=== PATIENT | female | born 1955 | race African-American/Black ===

== ENCOUNTER 2016-06-21 08:21 | Emergency (ER) | payer OTHER ==
[2016-06-21 08:30] VITALS: TEMP 98; BMI 33.7
[2016-06-21] MEDS ORDERED: KETOROLAC TROMETHAMINE 30 MG/1 ML VIAL IVPUSH ONE (09:52)
[2016-06-21] MEDS ORDERED: amLODIPine BESYLATE 5 MG TABLET (FP) PO ONE (09:56)
[2016-06-21] MEDS ORDERED: LISINOPRIL 5 MG TABLET (FP) PO ONE (09:56)
--- NOTE | 2016-06-21 09:56 | PDOC ---
History of Present Illness - General Chief Complaint: Blood Pressure Problem Stated Complaint: DIZZINESS, HIGH BP, BACK PAIN Time Seen by Provider: 06/21/16 09:24 History Source: Patient - History of Present Illness Timing/Duration: other Severity: moderate Associated Symptoms: denies: chest pain, diaphoresis, fever/chills, headaches, malaise, nausea/vomiting, shortness of breath, syncope, weakness Past History - Past Medical History Allergies/Adverse Reactions: Allergies Allergy/AdvReac Type Severity Reaction Status Date / Time No Known Allergies Allergy Verified 06/21/16 08:27 Home Medications: Ambulatory Orders Amlodipine Besylate 5 mg PO 06/21/16 Lisinopril 5 mg PO 06/21/16 Oxycodone HCl/Acetaminophen [Percocet 5-325 mg Tablet] 1 - 2 tab PO Q4H Anemia: Yes Asthma: Yes GI Disorders: Yes (gerd) HTN: Yes Other medical history: arithritis - Immunization History Immunization Up to Date: No - Psycho/Social/Smoking Cessation Hx Anxiety: No Suicidal Ideation: No Smoking History: Current every day smoker Have you smoked in the past 12 months: Yes Number of Cigarettes Smoked Daily: 10 Information on smoking cessation initiated: Yes 'Breaking Loose' booklet given: 06/21/16 Hx Alcohol Use: No Drug/Substance Use Hx: No Substance Use Type: None Review of Systems - Review of Systems Constitutional: No: Chills, Fever Respiratory: No: Shortness of Breath Cardiac (ROS): No: Chest Pain ABD/GI: No: Nausea, Vomiting : No: Dysuria Neurological: No: Headache, Dizziness *Physical Exam - Vital Signs Last Vital Signs Temp Pulse Resp BP Pulse Ox 98.0 F 68 18 155/115 100 06/21/16 08:28 06/21/16 08:28 06/21/16 08:28 06/21/16 08:28 06/21/16 08:28 - Physical Exam General Appearance: Yes: Appropriately Dressed. No: Apparent Distress HEENT: positive: Normal Voice Neck: positive: Supple Respiratory/Chest: positive: Lungs Clear, Normal Breath Sounds. negative: Respiratory Distress Cardiovascular: positive: Regular Rate, S1, S2 Gastrointestinal/Abdominal: positive: Soft. negative: Tender Integumentary: positive: Dry, Warm Neurologic: positive: Fully Oriented, Alert, Normal Mood/Affect ED Treatment Course - LABORATORY CBC & Chemistry Diagram: 06/21/16 09:44 06/21/16 09:44 Medical Decision Making - Medical Decision Making 06/21/16 09:52 60-year-old female history of arthritis to lower back and legs as per patient currently follows up with pain management and on percocet, hypertension, polysubstance abuse including ETOH, crack/cocaine and marijuana, here complaining of her usual back and leg pain and requesting percocet as she ran out. Patient also requesting inpatient rehabilitation. Denies CP/SOB and no dizziness as recorded at triage See exam Arthritis -pain control Polysubstance abuse -req inpt rehab -labs including etoh lvl and drug screen pending -discuss w/ 2 [place] Elevated BP -will give home meds and reassess 06/21/16 09:56 06/21/16 09:57 06/21/16 11:[address] Tan who accepted pt to the rehab center at [facility]. ED nurse aware. BP improved w/ meds. Pt stable for transfer *DC/Admit/Observation/Transfer Diagnosis at time of Disposition: Polysubstance abuse, Arthritis - Discharge Dispostion Disposition: I.P. ALCOHOL/SUBS ABUSE REHAB Condition at time of disposition: Stable - Referrals Referrals: Sarath Carmona [Primary Care Provider] -
[2016-06-21] MEDS ORDERED: amLODIPine BESYLATE 5 MG TABLET (FP) ONE (10:08)
[2016-06-21] MEDS ORDERED: KETOROLAC TROMETHAMINE 60 MG/2 ML VIAL ONE (10:08)
[2016-06-21] MEDS ORDERED: LISINOPRIL 5 MG TABLET (FP) ONE (10:09)
[2016-06-21 10:12] LABS: EOSINOPHIL 3.1 % (0-4.5); MCH 29.6 pg (25.7-33.7); MCHC 32.7 g/dl (32.0-36.0); MEAN CELL VOLUME 90.4 fl (80-96); MEAN PLT VOLUME 8.8 fl (7.5-11.1); NEUTROPHILS 51.1 % (42.8-82.8); PLATELET COUNT 203 K/MM3 (134-434); RDW 14.4 % (11.6-15.6)
[2016-06-21 10:19] LABS: URINE APPEARANCE CLEAR; URINE BILIRUBIN NEGATIVE (NEGATIVE); URINE COLOR YELLOW; URINE GLUCOSE (UA) NEGATIVE (NEGATIVE); URINE KETONE NEGATIVE (NEGATIVE); URINE LEUK ESTERASE NEGATIVE (NEGATIVE); URINE NITRITE NEGATIVE (NEGATIVE); URINE PROTEIN NEGATIVE (NEGATIVE); URINE UROBILINOGEN NEGATIVE E.U./dl (0.2-1.0)
[2016-06-21 10:24] LABS: URINE BLOOD 1+ (NEGATIVE)
[2016-06-21 10:28] LABS: URINE MUCUS RARE; URINE RBC 1 /hpf (0-3); URINE WBC <1 /hpf (3-5)
[2016-06-21 10:32] LABS: ALBUMIN 3.6 g/dl (3.4-5.0); ANION GAP 3 (8-16); BILIRUBIN,TOTAL 0.8 mg/dL (0.2-1.0); CALCIUM 8.8 mg/dL (8.5-10.1); CO2 31 mmol/L (21-32); CREATININE 1.1 mg/dL (0.55-1.02); GLUCOSE,RANDOM 84 mg/dL (74-106); SGPT/ALT 16 U/L (12-78); TOT PROT 7.2 g/dl (6.4-8.2)
[2016-06-21 10:35] LABS: URINE MARIJUANA THC POSITIVE ng/ml (CUTOFF=50)
[2016-06-21 10:38] LABS: ALK PHOS 69 U/L (45-117); SGOT/AST 8 U/L (15-37); TROPONIN I < 0.02 ng/ml (0.00-0.05)
[2016-06-21 12:28] VITALS: BP 149/77; PULSE 64
== END 2016-06-21 12:33 | disposition home or self-care (01) ==
LOC: JER 08:21
PROC: 3E0333Z Introduction of Anti-inflammatory into Peripheral Vein, Percutaneous Approach (ICD-10-PCS; principal; 2016-06-21)
DX: F19.90 Other psychoactive substance use, unspecified, uncomplicated (principal); F10.10 Alcohol abuse, uncomplicated; M19.90 Unspecified osteoarthritis, unspecified site; I10 Essential (primary) hypertension; K21.9 Gastro-esophageal reflux disease without esophagitis; J45.909 Unspecified asthma, uncomplicated; D64.9 Anemia, unspecified; F17.210 Nicotine dependence, cigarettes, uncomplicated
CPT/HCPCS: 36415; 80053; 80307; 81003; 81015; 82550; 84484; 85025; 96374; 99283-25

== ENCOUNTER 2016-06-21 13:33 | Inpatient (IN) | payer OTHER ==
[2016-06-21 15:09] VITALS: BMI 33.7
--- NOTE | 2016-06-21 15:32 | HP ---
Admission ROS S - HPI Chief Complaint: i need help to stay clean from alcohol,cocaine and marijuana,sen in er at [facility] clear to come for rehab Allergies/Adverse Reactions: Allergies Allergy/AdvReac Type Severity Reaction Status Date / Time tomato Allergy Severe Hives Verified 06/21/16 15:17 No Known Drug Allergies Allergy Verified 06/21/16 15:17 History of Present Illness: this 60 years old female for rehab from alcohol,cocaine and marijuana gerrd htn gerd arthritis schizophrenia asthma last treatment 2007 Exam Limitations: No Limitations - Ebola screening Have you traveled outside of the country in the last 21 days: No Have you had contact with anyone from an Ebola affected area: No Have you been sick,other than usual withdrawal symptoms: No Do you have a fever: No - Review of Systems Constitutional: No Symptoms Reported EENT: reports: No Symptoms Reported Respiratory: reports: Wheezing, Other (asthma) Cardiac: reports: No Symptoms Reported GI: reports: No Symptoms Reported : reports: No Symptoms Reported Musculoskeletal: reports: No Symptoms Reported, Joint Pain, Muscle Pain Integumentary: reports: No Symptoms Reported Neuro: reports: No Symptoms reported Endocrine: reports: No Symptoms Reported Hematology: reports: No Symptoms Reported Psychiatric: reports: other (schizophrenia) Patient History - Patient Medical History Hx Anemia: Yes Hx Asthma: Yes (on albuterol inhaler) Hx Chronic Obstructive Pulmonary Disease (COPD): No Hx Cancer: No Hx Cardiac Disorders: No Hx Congestive Heart Failure: No Hx Hypertension: Yes (med) Hx Hypercholesterolemia: No Hx Pacemaker: No HX Cerebrovascular Accident: No Hx Seizures: No Hx Dementia: No Hx Diabetes: No Hx Gastrointestinal Disorders: Yes (gerd) Hx Liver Disease: No Hx Genitourinary Disorders: No Hx Sexually Transmitted Disorders: No Hx Renal Disease (ESRD): No Hx Thyroid Disease: No Hx Human Immunodeficiency Virus (HIV): No (last 2009 negative) Hx Hepatitis C: No Hx Depression: No Hx Suicide Attempt: No Hx Bipolar Disorder: No Hx Schizophrenia: Yes (had haldol 100 mgs im q 3 weeks last 06/20/16) - Patient Surgical History Past Surgical History: No - PPD History Previous Implant?: Yes Documented Results: Negative w/o proof Implanted On Prior [facility] Admission?: Yes PPD to be Administered?: Yes - Reproductive History Patient is a Female of Child Bearing Age (11 -55 yrs old): No - Smoking Cessation Smoking history: Current every day smoker Have you smoked in the past 12 months: Yes Aproximately how many cigarettes per day: 10 Cigars Per Day: 0 Hx Chewing Tobacco Use: No Initiated information on smoking cessation: Yes 'Breaking Loose' booklet given: 06/21/16 - Substance & Tx. History Hx Alcohol Use: Yes Hx Substance Use: Yes Substance Use Type: Alcohol, Cocaine, Marijuana Hx Substance Use Treatment: Yes (last 2007 [facility] rehab) - Substances Abused Alcohol Route: Oral Frequency: Daily Amount used: 2 BEERS Age of first use: 18 Date of Last Use: 06/21/16 Crack Route: Smoking Frequency: Daily Amount used: $100 Age of first use: 29 Date of Last Use: 06/21/16 Marijuana/Hashish Route: Smoking Frequency: Daily Amount used: 1 BLUNT Age of first use: 18 Date of Last Use: 06/21/16 Family Disease History - Family Disease History Family History: Denies Admission Physical Exam [facility] - Vital Signs Vital Signs: Vital Signs - 24 hr 06/21/16 15:05 Temperature 98 F Pulse Rate 73 Respiratory 20 Rate Blood Pressure 148/92 - Physical General Appearance: Yes: Within Normal Limits HEENTM: Yes: Within Normal Limits Respiratory: Yes: Lungs Clear Neck: Yes: Within Normal Limits Breast: Yes: Breast Exam Deferred Cardiology: Yes: Within Normal Limits, Regular Rhythm, Regular Rate, S1, S2 Abdominal: Yes: Normal Bowel Sounds, Non Tender, Flat, Soft Genitourinary: Yes: Within Normal Limits Back: Yes: Within Normal Limits Musculoskeletal: Yes: Within Normal Limits Extremities: Yes: Within Normal Limits 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 NML intact, Fully Oriented, Alert, Motor Strength 5/5 Integumentary: Yes: Within Normal Limits Lymphatic: Yes: Within Normal Limits - Diagnostic (1) Alcohol dependence Current Visit: Yes Status: Acute (2) Cocaine dependence Current Visit: Yes Status: Acute (3) Cannabis dependence Current Visit: Yes Status: Acute (4) Schizophrenia Current Visit: Yes Status: Acute (5) GERD (gastroesophageal reflux disease) Current Visit: Yes Status: Acute (6) Essential hypertension Current Visit: Yes Status: Acute (7) Asthma Current Visit: Yes Status: Acute (8) Anemia Current Visit: Yes Status: Acute Cleared for Admission S - Detox or Rehab Claeared for Rehab Admission: Yes [facility] Breath Alcohol Content Breath Alcohol Content: 0 Urine Pregancy Test - Result Urine Test Results: Negative- NO Line Present Urine Drug Screen - Results Drug Screen Negative: No Urine Drug Screen Results: KEKE-Cocaine, TCA-Tricyclic Antidepress
[2016-06-21] MEDS ORDERED: MENTHOL/PHENOL 1 EACH UD MM PRN (15:41)
[2016-06-21] MEDS ORDERED: MAGNESIUM CITRATE 300 ML BOTTLE PO PRN (15:41)
[2016-06-21] MEDS ORDERED: P-EPHED 60MG/TRIPROLIDI 2.5MG TABLET PO PRN (15:41)
[2016-06-21] MEDS ORDERED: guaiFENesin/D-METHORPHAN HB 10 ML UNIT-DOSE CUPS PO PRN (15:41)
[2016-06-21] MEDS ORDERED: hydrOXYzine PAMOATE 50 MG CAPSULE (FP) PO PRN (15:41)
[2016-06-21] MEDS ORDERED: MAG HYDROX/AL HYDROX/SIMETH 30 ML UNIT-DOSE CUP PO PRN (15:41)
[2016-06-21] MEDS ORDERED: LOPERAMIDE HCL 2 MG CAPSULE PO PRN (15:41)
[2016-06-21] MEDS ORDERED: MAGNESIUM HYDROX 2400MG/30ML ORAL SUSPENSION 30 ML CUP PO PRN (15:41)
[2016-06-21] MEDS ORDERED: diphenhydrAMINE HCL 50 MG CAPSULE PO PRN (15:41)
[2016-06-21] MEDS ORDERED: ALBUTEROL SO4 6.7 GM HFA INHALER IH PRN (15:45)
[2016-06-21] MEDS ORDERED: ALBUTEROL SO4 2.5/IPRATROPIUM 0.5 INH SOL 3 ML VIAL.NEB. NEB PRN (15:46)
[2016-06-21] MEDS ORDERED: TUBERCULIN PPD 5 TU/0.1ML VIAL ID ONE (18:01)
[2016-06-21] MEDS: THIAMINE HCL 100 MG TABLET (FP) PO SCH (22:01)
[2016-06-21] MEDS: RANITIDINE HCL 150 MG TABLET (FP) PO SCH (22:01)
[2016-06-21] MEDS: BUDESONIDE/FORMETEROL FUMARATE 160/4.5 mcg INHALER IH SCH (22:02)
[2016-06-21] MEDS: FERROUS SO4 325 MG TABLET (FP) PO SCH (22:02)
[2016-06-21] MEDS: DOCUSATE SODIUM 100 MG CAPSULE (FP) PO SCH (22:03)
[2016-06-22 05:31] LABS: URINE APPEARANCE CLEAR; URINE BILIRUBIN NEGATIVE (NEGATIVE); URINE BLOOD NEGATIVE (NEGATIVE); URINE COLOR YELLOW; URINE GLUCOSE (UA) NEGATIVE (NEGATIVE); URINE KETONE NEGATIVE (NEGATIVE); URINE LEUK ESTERASE NEGATIVE (NEGATIVE); URINE NITRITE NEGATIVE (NEGATIVE); URINE PROTEIN NEGATIVE (NEGATIVE); URINE UROBILINOGEN NEGATIVE E.U./dl (0.2-1.0)
[2016-06-22] MEDS: FERROUS SO4 325 MG TABLET (FP) PO SCH ×2 (07:32→17:45)
[2016-06-22] MEDS: DOCUSATE SODIUM 100 MG CAPSULE (FP) PO SCH ×3 (07:33→22:21)
[2016-06-22] MEDS ORDERED: PT OWN MED DRAWER 7, Y5N ONE ×2 (08:20→20:30)
[2016-06-22] MEDS: BUDESONIDE/FORMETEROL FUMARATE 160/4.5 mcg INHALER IH SCH ×2 (09:44→22:21)
[2016-06-22] MEDS: RANITIDINE HCL 150 MG TABLET (FP) PO SCH ×2 (09:45→22:21)
[2016-06-22] MEDS: PRENATAL VITAMINS W/ FOLIC ACID TABLET (FP) PO SCH (09:45)
[2016-06-22] MEDS: LISINOPRIL 5 MG TABLET (FP) PO SCH (09:45)
[2016-06-22] MEDS: amLODIPine BESYLATE 5 MG TABLET (FP) PO SCH (09:45)
--- NOTE | 2016-06-22 16:19 | EKG ---
Test Reason : Blood Pressure : / mmHG Vent. Rate : 076 BPM Atrial Rate : 076 BPM P-R Int : 144 ms QRS Dur : 082 ms QT Int : 402 ms P-R-T Axes : 067 -15 022 degrees QTc Int : 452 ms NORMAL SINUS RHYTHM NORMAL ECG WHEN COMPARED WITH ECG OF 05-JAN-2014 04:55, NO SIGNIFICANT CHANGE WAS FOUND Confirmed by JOCY ARREOLA MD ([id number]) on 06/22/2016 4:19:26 PM Referred By: Confirmed By:JOCY ARREOLA MD
[2016-06-22] MEDS: THIAMINE HCL 100 MG TABLET (FP) PO SCH (22:21)
[2016-06-23] MEDS: DOCUSATE SODIUM 100 MG CAPSULE (FP) PO SCH ×3 (06:42→21:24)
[2016-06-23] MEDS: FERROUS SO4 325 MG TABLET (FP) PO SCH ×2 (07:15→17:44)
[2016-06-23] MEDS: RANITIDINE HCL 150 MG TABLET (FP) PO SCH ×2 (09:12→21:24)
[2016-06-23] MEDS: amLODIPine BESYLATE 5 MG TABLET (FP) PO SCH (09:12)
[2016-06-23] MEDS: PRENATAL VITAMINS W/ FOLIC ACID TABLET (FP) PO SCH (09:12)
[2016-06-23] MEDS: LISINOPRIL 5 MG TABLET (FP) PO SCH (09:12)
[2016-06-23] MEDS: BUDESONIDE/FORMETEROL FUMARATE 160/4.5 mcg INHALER IH SCH ×2 (09:12→21:25)
[2016-06-23] MEDS ORDERED: PT OWN MED DRAWER 7, Y5N ONE (20:15)
[2016-06-23] MEDS: THIAMINE HCL 100 MG TABLET (FP) PO SCH (21:24)
[2016-06-24] MEDS: FERROUS SO4 325 MG TABLET (FP) PO SCH ×2 (07:18→17:20)
[2016-06-24] MEDS: DOCUSATE SODIUM 100 MG CAPSULE (FP) PO SCH ×3 (07:18→21:39)
[2016-06-24] MEDS: amLODIPine BESYLATE 5 MG TABLET (FP) PO SCH ×2 (07:25→10:11)
[2016-06-24] MEDS: LISINOPRIL 5 MG TABLET (FP) PO SCH ×2 (07:25→10:11)
[2016-06-24] MEDS: PRENATAL VITAMINS W/ FOLIC ACID TABLET (FP) PO SCH (10:10)
[2016-06-24] MEDS: RANITIDINE HCL 150 MG TABLET (FP) PO SCH ×2 (10:10→21:39)
[2016-06-24] MEDS: BUDESONIDE/FORMETEROL FUMARATE 160/4.5 mcg INHALER IH SCH ×2 (10:11→21:39)
--- NOTE | 2016-06-24 14:45 | HP ---
Psychiatrist Admission - Data Date of interview: 06/24/16 Admission source: [facility] Identifying data: This is the first admission to [address] [place] [address] for this 60 years old AA female,single,childless,undomiciled, supported by [facility]. Medical History: Obesity,HTN,GERD,BA. Psychiatric History: Patient is poor historian due to her cognitive deficit, somewhat relauctant behavior.According to the patient and medical record she started to see a psychiatrist since 14 years ld after her first psychotic breakdown.patient was admissted to [facility] for 6 months.She was dx with Schizophrenai,placed on Haldol with good response.Patient reports 4-5 more psychiatric hispitaliations.[facility]Patient is on Haldol Decanoate 100 mg IM every 4 weeks.Most recent injection was 1 week ago. Physical/Sexual Abuse/Trauma History: denies Vital Signs: Vital Signs - 24 hr 06/24/16 06/24/16 06/24/16 00:30 03:30 07:24 Temperature 97.9 F Pulse Rate 86 Respiratory 18 18 20 Rate Blood Pressure 174/112 06/24/16 11:05 Temperature Pulse Rate 69 Respiratory Rate Blood Pressure 138/80 Allergies/Adverse Reactions: Allergies Allergy/AdvReac Type Severity Reaction Status Date / Time tomato Allergy Severe Hives Verified 06/21/16 15:17 No Known Drug Allergies Allergy Verified 06/21/16 15:17 Date of last physical exam: 06/21/16 Concur with the findings of this exam: Yes - Substance Abuse/Tx History Hx Alcohol Use: Yes (reports drinking since 18 yo,2 beers daily at least) Hx Substance Use: Yes (cocaine/crack since 29 yo,$100 daily,Marijuana since 18 yo ,1 blunt daily) Substance Use Type: Alcohol, Cocaine, Marijuana Hx Substance Use Treatment: Yes (multiple rehabs,detox treatments in the past) - Admission Criteria Previous failed treatment: Yes Poor recovery environment: Yes Comorbidities: Yes Lacks judgement: Yes Mental Status Exam - Mental Status Exam Alert and Oriented to: Time, Place, Person Cognitive Function: Grossly Intact Patient Appearance: Unkempt Mood: Withdrawn Affect: Mood Congruent Patient Behavior: Guarded, Suspicious Speech Pattern: Clear Voice Loudness: Normal Thought Process: Goal Oriented Thought Disorder: Present Hallucinations: Denies Suicidal Ideation: Denies Homicidal Ideation: Denies Insight/Judgement: Impaired Sleep: Fair Appetite: Good, Weight gain Muscle strength/Tone: Normal Gait/Station: Normal Psychiatric Findings - Problem List (Barker 1, 2,3) (1) Alcohol dependence Current Visit: Yes Status: Chronic (2) Anemia Current Visit: Yes Status: Chronic (3) Asthma Current Visit: Yes Status: Chronic (4) Cannabis dependence Current Visit: Yes Status: Chronic (5) Cocaine dependence Current Visit: Yes Status: Chronic (6) Essential hypertension Current Visit: Yes Status: Chronic (7) GERD (gastroesophageal reflux disease) Current Visit: Yes Status: Chronic (8) Schizophrenia Current Visit: Yes Status: Chronic - Initial Treatment Plan Initial Treatment Plan: Continue current medications as per plan.Nexr Haldol Decanoate 100 mg IM in 3 weeks. Will monitor progress.
[2016-06-24] MEDS: THIAMINE HCL 100 MG TABLET (FP) PO SCH (21:39)
[2016-06-25] MEDS: DOCUSATE SODIUM 100 MG CAPSULE (FP) PO SCH ×3 (06:41→22:54)
[2016-06-25] MEDS: FERROUS SO4 325 MG TABLET (FP) PO SCH ×2 (07:43→18:31)
[2016-06-25] MEDS: PRENATAL VITAMINS W/ FOLIC ACID TABLET (FP) PO SCH (09:12)
[2016-06-25] MEDS: LISINOPRIL 5 MG TABLET (FP) PO SCH (09:13)
[2016-06-25] MEDS: RANITIDINE HCL 150 MG TABLET (FP) PO SCH ×2 (09:13→22:54)
[2016-06-25] MEDS: BUDESONIDE/FORMETEROL FUMARATE 160/4.5 mcg INHALER IH SCH ×2 (09:13→22:54)
[2016-06-25] MEDS: amLODIPine BESYLATE 5 MG TABLET (FP) PO SCH (09:13)
[2016-06-25] MEDS: THIAMINE HCL 100 MG TABLET (FP) PO SCH (22:54)
[2016-06-26] MEDS: DOCUSATE SODIUM 100 MG CAPSULE (FP) PO SCH ×3 (06:40→21:24)
[2016-06-26] MEDS: FERROUS SO4 325 MG TABLET (FP) PO SCH ×2 (07:27→18:03)
[2016-06-26] MEDS ORDERED: PT OWN MED DRAWER 7, Y5N ONE (08:50)
[2016-06-26] MEDS: amLODIPine BESYLATE 5 MG TABLET (FP) PO SCH (10:10)
[2016-06-26] MEDS: BUDESONIDE/FORMETEROL FUMARATE 160/4.5 mcg INHALER IH SCH ×2 (10:10→21:24)
[2016-06-26] MEDS: LISINOPRIL 5 MG TABLET (FP) PO SCH (10:10)
[2016-06-26] MEDS: RANITIDINE HCL 150 MG TABLET (FP) PO SCH ×2 (10:10→21:24)
[2016-06-26] MEDS: PRENATAL VITAMINS W/ FOLIC ACID TABLET (FP) PO SCH (10:10)
[2016-06-26] MEDS: THIAMINE HCL 100 MG TABLET (FP) PO SCH (21:23)
[2016-06-27] MEDS: DOCUSATE SODIUM 100 MG CAPSULE (FP) PO SCH ×3 (06:26→21:17)
[2016-06-27] MEDS: FERROUS SO4 325 MG TABLET (FP) PO SCH ×2 (07:13→17:25)
[2016-06-27] MEDS: LISINOPRIL 5 MG TABLET (FP) PO SCH (10:11)
[2016-06-27] MEDS: PRENATAL VITAMINS W/ FOLIC ACID TABLET (FP) PO SCH (10:11)
[2016-06-27] MEDS: RANITIDINE HCL 150 MG TABLET (FP) PO SCH ×2 (10:11→23:20)
[2016-06-27] MEDS: amLODIPine BESYLATE 5 MG TABLET (FP) PO SCH (10:11)
[2016-06-27] MEDS: BUDESONIDE/FORMETEROL FUMARATE 160/4.5 mcg INHALER IH SCH ×2 (10:12→21:18)
[2016-06-27] MEDS: THIAMINE HCL 100 MG TABLET (FP) PO SCH (21:18)
[2016-06-28] MEDS: DOCUSATE SODIUM 100 MG CAPSULE (FP) PO SCH ×3 (06:36→22:06)
[2016-06-28] MEDS: FERROUS SO4 325 MG TABLET (FP) PO SCH ×2 (07:34→17:10)
[2016-06-28] MEDS ORDERED: PT OWN MED DRAWER 7, Y5N ONE ×2 (08:48→20:05)
[2016-06-28] MEDS: BUDESONIDE/FORMETEROL FUMARATE 160/4.5 mcg INHALER IH SCH ×2 (09:54→22:06)
[2016-06-28] MEDS: RANITIDINE HCL 150 MG TABLET (FP) PO SCH ×2 (09:54→22:06)
[2016-06-28] MEDS: PRENATAL VITAMINS W/ FOLIC ACID TABLET (FP) PO SCH (09:54)
[2016-06-28] MEDS: LISINOPRIL 5 MG TABLET (FP) PO SCH (09:54)
[2016-06-28] MEDS: amLODIPine BESYLATE 5 MG TABLET (FP) PO SCH (09:54)
[2016-06-28] MEDS: IBUPROFEN 400 MG TABLET (FP) PO PRN ×2 (16:37→22:37)
[2016-06-28] MEDS: ACETAMINOPHEN 325 MG TABLET (FP) PO PRN (19:12)
[2016-06-28] MEDS: THIAMINE HCL 100 MG TABLET (FP) PO SCH (22:06)
[2016-06-29] MEDS: DOCUSATE SODIUM 100 MG CAPSULE (FP) PO SCH ×3 (06:43→21:21)
[2016-06-29] MEDS: FERROUS SO4 325 MG TABLET (FP) PO SCH ×2 (07:02→17:22)
[2016-06-29] MEDS: PRENATAL VITAMINS W/ FOLIC ACID TABLET (FP) PO SCH (09:51)
[2016-06-29] MEDS: LISINOPRIL 5 MG TABLET (FP) PO SCH (09:52)
[2016-06-29] MEDS: BUDESONIDE/FORMETEROL FUMARATE 160/4.5 mcg INHALER IH SCH ×2 (09:52→21:21)
[2016-06-29] MEDS: RANITIDINE HCL 150 MG TABLET (FP) PO SCH ×2 (09:52→23:20)
[2016-06-29] MEDS: amLODIPine BESYLATE 5 MG TABLET (FP) PO SCH (09:52)
[2016-06-29] MEDS: IBUPROFEN 400 MG TABLET (FP) PO PRN (09:56)
[2016-06-29] MEDS: THIAMINE HCL 100 MG TABLET (FP) PO SCH (21:21)
[2016-06-30] MEDS: DOCUSATE SODIUM 100 MG CAPSULE (FP) PO SCH ×3 (07:25→21:29)
[2016-06-30] MEDS: FERROUS SO4 325 MG TABLET (FP) PO SCH ×2 (07:25→17:27)
[2016-06-30] MEDS: PRENATAL VITAMINS W/ FOLIC ACID TABLET (FP) PO SCH (10:23)
[2016-06-30] MEDS: amLODIPine BESYLATE 5 MG TABLET (FP) PO SCH (10:23)
[2016-06-30] MEDS: RANITIDINE HCL 150 MG TABLET (FP) PO SCH ×2 (10:23→21:29)
[2016-06-30] MEDS: LISINOPRIL 5 MG TABLET (FP) PO SCH (10:23)
[2016-06-30] MEDS: BUDESONIDE/FORMETEROL FUMARATE 160/4.5 mcg INHALER IH SCH ×2 (10:24→21:30)
[2016-06-30] MEDS: IBUPROFEN 400 MG TABLET (FP) PO PRN ×2 (10:26→17:28)
[2016-06-30] MEDS: THIAMINE HCL 100 MG TABLET (FP) PO SCH (21:29)
[2016-07-01] MEDS: DOCUSATE SODIUM 100 MG CAPSULE (FP) PO SCH ×3 (06:41→21:26)
[2016-07-01] MEDS: IBUPROFEN 400 MG TABLET (FP) PO PRN (06:41)
[2016-07-01] MEDS: FERROUS SO4 325 MG TABLET (FP) PO SCH ×2 (07:09→17:27)
[2016-07-01] MEDS: BUDESONIDE/FORMETEROL FUMARATE 160/4.5 mcg INHALER IH SCH ×2 (10:02→21:27)
[2016-07-01] MEDS: amLODIPine BESYLATE 5 MG TABLET (FP) PO SCH (10:03)
[2016-07-01] MEDS: PRENATAL VITAMINS W/ FOLIC ACID TABLET (FP) PO SCH (10:03)
[2016-07-01] MEDS: RANITIDINE HCL 150 MG TABLET (FP) PO SCH ×2 (10:03→21:26)
[2016-07-01] MEDS: ACETAMINOPHEN 325 MG TABLET (FP) PO PRN (10:03)
[2016-07-01] MEDS: LISINOPRIL 5 MG TABLET (FP) PO SCH (10:06)
[2016-07-01] MEDS: CYCLOBENZAPRINE HCL 10 MG TABLET (FP) PO SCH ×2 (13:18→21:26)
[2016-07-01] MEDS: NAPROXEN 500 MG TABLET (FP) PO SCH ×2 (13:19→21:26)
[2016-07-01] MEDS: THIAMINE HCL 100 MG TABLET (FP) PO SCH (21:26)
[2016-07-02] MEDS: DOCUSATE SODIUM 100 MG CAPSULE (FP) PO SCH ×3 (06:27→21:21)
[2016-07-02] MEDS: FERROUS SO4 325 MG TABLET (FP) PO SCH ×2 (07:00→17:27)
[2016-07-02] MEDS ORDERED: PT OWN MED DRAWER 7, Y5N ONE ×2 (08:36→20:24)
[2016-07-02] MEDS: NAPROXEN 500 MG TABLET (FP) PO SCH ×2 (10:07→21:21)
[2016-07-02] MEDS: PRENATAL VITAMINS W/ FOLIC ACID TABLET (FP) PO SCH (10:07)
[2016-07-02] MEDS: amLODIPine BESYLATE 5 MG TABLET (FP) PO SCH (10:07)
[2016-07-02] MEDS: RANITIDINE HCL 150 MG TABLET (FP) PO SCH ×2 (10:07→21:21)
[2016-07-02] MEDS: LISINOPRIL 5 MG TABLET (FP) PO SCH (10:07)
[2016-07-02] MEDS: BUDESONIDE/FORMETEROL FUMARATE 160/4.5 mcg INHALER IH SCH ×2 (10:07→21:20)
[2016-07-02] MEDS: CYCLOBENZAPRINE HCL 10 MG TABLET (FP) PO SCH ×2 (10:07→21:21)
[2016-07-02] MEDS: THIAMINE HCL 100 MG TABLET (FP) PO SCH (21:20)
[2016-07-03] MEDS: DOCUSATE SODIUM 100 MG CAPSULE (FP) PO SCH ×3 (07:03→21:55)
[2016-07-03] MEDS: FERROUS SO4 325 MG TABLET (FP) PO SCH ×2 (07:03→17:30)
[2016-07-03] MEDS: BUDESONIDE/FORMETEROL FUMARATE 160/4.5 mcg INHALER IH SCH ×2 (10:14→21:56)
[2016-07-03] MEDS: RANITIDINE HCL 150 MG TABLET (FP) PO SCH ×2 (10:14→21:55)
[2016-07-03] MEDS: PRENATAL VITAMINS W/ FOLIC ACID TABLET (FP) PO SCH (10:14)
[2016-07-03] MEDS: NAPROXEN 500 MG TABLET (FP) PO SCH ×2 (10:14→21:55)
[2016-07-03] MEDS: CYCLOBENZAPRINE HCL 10 MG TABLET (FP) PO SCH ×2 (10:14→21:55)
[2016-07-03] MEDS: amLODIPine BESYLATE 5 MG TABLET (FP) PO SCH (10:14)
[2016-07-03] MEDS: LISINOPRIL 5 MG TABLET (FP) PO SCH (10:14)
[2016-07-03] MEDS: THIAMINE HCL 100 MG TABLET (FP) PO SCH (21:56)
[2016-07-04] MEDS: FERROUS SO4 325 MG TABLET (FP) PO SCH ×2 (07:30→17:56)
[2016-07-04] MEDS: DOCUSATE SODIUM 100 MG CAPSULE (FP) PO SCH ×3 (07:30→21:26)
[2016-07-04] MEDS: LISINOPRIL 5 MG TABLET (FP) PO SCH (10:32)
[2016-07-04] MEDS: BUDESONIDE/FORMETEROL FUMARATE 160/4.5 mcg INHALER IH SCH ×2 (10:32→21:27)
[2016-07-04] MEDS: amLODIPine BESYLATE 5 MG TABLET (FP) PO SCH (10:32)
[2016-07-04] MEDS: RANITIDINE HCL 150 MG TABLET (FP) PO SCH ×2 (10:32→21:26)
[2016-07-04] MEDS: PRENATAL VITAMINS W/ FOLIC ACID TABLET (FP) PO SCH (10:32)
[2016-07-04] MEDS: CYCLOBENZAPRINE HCL 10 MG TABLET (FP) PO SCH ×2 (10:32→21:26)
[2016-07-04] MEDS: NAPROXEN 500 MG TABLET (FP) PO SCH ×2 (10:32→21:26)
[2016-07-04] MEDS: THIAMINE HCL 100 MG TABLET (FP) PO SCH (21:26)
[2016-07-05] MEDS: DOCUSATE SODIUM 100 MG CAPSULE (FP) PO SCH ×3 (06:13→21:23)
[2016-07-05] MEDS: FERROUS SO4 325 MG TABLET (FP) PO SCH ×2 (07:17→18:25)
[2016-07-05] MEDS ORDERED: PT OWN MED DRAWER 7, Y5N ONE (08:26)
[2016-07-05] MEDS: RANITIDINE HCL 150 MG TABLET (FP) PO SCH ×2 (10:20→21:23)
[2016-07-05] MEDS: CYCLOBENZAPRINE HCL 10 MG TABLET (FP) PO SCH ×2 (10:20→21:23)
[2016-07-05] MEDS: LISINOPRIL 5 MG TABLET (FP) PO SCH (10:20)
[2016-07-05] MEDS: BUDESONIDE/FORMETEROL FUMARATE 160/4.5 mcg INHALER IH SCH ×2 (10:20→21:25)
[2016-07-05] MEDS: amLODIPine BESYLATE 5 MG TABLET (FP) PO SCH (10:21)
[2016-07-05] MEDS: PRENATAL VITAMINS W/ FOLIC ACID TABLET (FP) PO SCH (10:21)
[2016-07-05] MEDS: NAPROXEN 500 MG TABLET (FP) PO SCH ×2 (10:21→21:23)
--- NOTE | 2016-07-05 14:03 | PN ---
Psychiatric Progress Note Vital Signs: Vital Signs Period Temp Pulse Resp BP Sys/Tobar Pulse Ox Last 24 Hr 97.4 F 61-64 18-18 130-146/77-84 Date of Session: 07/05/16 Chief Complaint:: Progress update. HPI: Patient addressed Alcohol,Cocaine and Cannabis dependence comorbid with Schizophrenia. ROS: Anemia,BA,GERD,HTN. Current Medications: Active Medications Generic Name Dose Route Start Last Admin Trade Name Freq PRN Reason Stop Dose Admin Acetaminophen 650 mg 06/21/16 15:41 07/01/16 10:03 Tylenol - PO 650 mg Q4H PRN Administration PAIN Al Hydroxide/Mg Hydroxide 30 ml 06/21/16 15:41 Mylanta Oral Suspension - PO Q6H PRN DYSPEPSIA Albuterol Sulfate 2 puff 06/21/16 15:45 Ventolin Hfa Inhaler - IH Q4H PRN SHORT OF BREATH/WHEEZING Albuterol/Ipratropium 1 amp 06/21/16 15:46 Duoneb - NEB Q6H PRN SHORTNESS OF BREATH Amlodipine Besylate 5 mg 06/22/16 10:00 07/05/16 10:21 Norvasc - PO 5 mg DAILY JUAN Administration Budesonide/Formoterol Fumarate 2 puff 06/21/16 22:00 07/05/16 10:20 Symbicort 160/4.5mcg - IH 2 puff BID JUAN Administration Cyclobenzaprine HCl 10 mg 07/01/16 12:54 07/05/16 10:20 Flexeril - PO 10 mg BID JUAN Administration Diphenhydramine HCl 50 mg 06/21/16 15:41 Benadryl - PO HSMR1 PRN INSOMNIA Docusate Sodium 100 mg 06/21/16 22:00 07/05/16 13:03 Colace - PO Not Given TID JUAN Eucalyptus/Menthol/Phenol/Sorbitol 1 each 06/21/16 15:41 Cepastat Lozenge - MM Q4H PRN SORE THROAT Ferrous Sulfate 325 mg 06/21/16 18:15 07/05/16 07:17 Feosol - PO 325 mg BIDWM JUAN Administration Guaifenesin 10 ml 06/21/16 15:41 Robitussin Dm - PO Q6H PRN COUGH Hydroxyzine Pamoate 50 mg 06/21/16 15:41 Vistaril - PO Q4H PRN AGITATION Lisinopril 5 mg 06/22/16 10:00 07/05/16 10:20 Prinivil PO 5 mg DAILY JUAN Administration Loperamide HCl 4 mg 06/21/16 15:41 Imodium - PO Q6H PRN DIARRHEA Magnesium Citrate 300 ml 06/21/16 15:41 07/04/16 10:35 Citroma - PO 300 ml Q48H PRN Administration CONSTIPATION Magnesium Hydroxide 30 ml 06/21/16 15:41 07/03/16 13:03 Milk Of Magnesia - PO 30 ml DAILY PRN Administration CONSTIPATION Naproxen 500 mg 07/01/16 12:54 07/05/16 10:21 Naprosyn - PO 500 mg BID JUAN Administration Multivit/Folic Acid/Iron 1 tab 06/22/16 10:00 07/05/16 10:21 Vitamins (Sjr) - PO 1 tab DAILY JUAN Administration Pseudoephedrine/Triprolidine 1 combo 06/21/16 15:41 Actifed - PO TID PRN NASAL CONGESTION Ranitidine HCl 150 mg 06/21/16 22:00 07/05/16 10:20 Zantac - PO 150 mg BID JUAN Administration Thiamine HCl 100 mg 06/21/16 22:00 07/04/16 21:26 Vitamin B1 - PO 100 mg HS JUNA Administration Current Side Effect: No Lab tests ordered: No Lab tests reviewed: Yes Provider note:: Chart was revuewed.Patient was evaluated,medications has been discussed with the patient including Haldol Decanoate injection.Last injection was given on 06/20/16,next one is supposed to be done on Jul 10.Patient's discharge date is Friday07/08/16 and she is requesting to get next injection on the day of discharge. Side effects and benefits of Haldol Decanoate has been discussed with the patient. Haldol Decanoate 100 mg IM ordered for . Supportive therapy has been provided. Total face to face time:: 30 Mental Status Exam - Mental Status Exam Alert and Oriented to: Time, Place, Person Cognitive Function: Grossly Intact Patient Appearance: Unkempt Mood: Euthymic Affect: Mood Congruent Patient Behavior: Cooperative Speech Pattern: Clear Voice Loudness: Normal Thought Process: Goal Oriented Thought Disorder: Being Controlled Hallucinations: Denies Suicidal Ideation: Denies Homicidal Ideation: Denies Insight/Judgement: Fair Sleep: Fair Appetite: Good Muscle strength/Tone: Normal Gait/Station: Normal Psychiatric Treatment Plan - Problem List (1) Alcohol dependence Current Visit: Yes (2) Anemia Current Visit: Yes (3) Asthma Current Visit: Yes (4) Cannabis dependence Current Visit: Yes (5) Cocaine dependence Current Visit: Yes (6) Essential hypertension Current Visit: Yes (7) GERD (gastroesophageal reflux disease) Current Visit: Yes (8) Schizophrenia Current Visit: Yes
[2016-07-05] MEDS: THIAMINE HCL 100 MG TABLET (FP) PO SCH (21:23)
[2016-07-06] MEDS: DOCUSATE SODIUM 100 MG CAPSULE (FP) PO SCH ×3 (06:17→21:20)
[2016-07-06] MEDS: FERROUS SO4 325 MG TABLET (FP) PO SCH ×2 (07:08→17:43)
[2016-07-06] MEDS: CYCLOBENZAPRINE HCL 10 MG TABLET (FP) PO SCH ×2 (10:09→21:20)
[2016-07-06] MEDS: BUDESONIDE/FORMETEROL FUMARATE 160/4.5 mcg INHALER IH SCH ×2 (10:10→21:19)
[2016-07-06] MEDS: amLODIPine BESYLATE 5 MG TABLET (FP) PO SCH (10:10)
[2016-07-06] MEDS: RANITIDINE HCL 150 MG TABLET (FP) PO SCH ×2 (10:10→21:20)
[2016-07-06] MEDS: NAPROXEN 500 MG TABLET (FP) PO SCH ×2 (10:10→21:20)
[2016-07-06] MEDS: LISINOPRIL 5 MG TABLET (FP) PO SCH (10:10)
[2016-07-06] MEDS: PRENATAL VITAMINS W/ FOLIC ACID TABLET (FP) PO SCH (10:10)
[2016-07-06] MEDS: THIAMINE HCL 100 MG TABLET (FP) PO SCH (21:19)
[2016-07-07] MEDS: DOCUSATE SODIUM 100 MG CAPSULE (FP) PO SCH ×3 (06:07→21:14)
[2016-07-07] MEDS: FERROUS SO4 325 MG TABLET (FP) PO SCH ×2 (07:10→17:23)
[2016-07-07] MEDS: LISINOPRIL 5 MG TABLET (FP) PO SCH (10:07)
[2016-07-07] MEDS: amLODIPine BESYLATE 5 MG TABLET (FP) PO SCH (10:07)
[2016-07-07] MEDS: BUDESONIDE/FORMETEROL FUMARATE 160/4.5 mcg INHALER IH SCH ×2 (10:07→21:15)
[2016-07-07] MEDS: CYCLOBENZAPRINE HCL 10 MG TABLET (FP) PO SCH ×2 (10:07→21:14)
[2016-07-07] MEDS: NAPROXEN 500 MG TABLET (FP) PO SCH ×2 (10:07→21:13)
[2016-07-07] MEDS: PRENATAL VITAMINS W/ FOLIC ACID TABLET (FP) PO SCH (10:07)
[2016-07-07] MEDS: RANITIDINE HCL 150 MG TABLET (FP) PO SCH ×2 (10:08→21:13)
[2016-07-07] MEDS: THIAMINE HCL 100 MG TABLET (FP) PO SCH (21:13)
[2016-07-08] MEDS: FERROUS SO4 325 MG TABLET (FP) PO SCH (07:07)
[2016-07-08] MEDS: DOCUSATE SODIUM 100 MG CAPSULE (FP) PO SCH (07:07)
[2016-07-08 07:40] VITALS: TEMP 97.3
[2016-07-08] MEDS ORDERED: HALOPERIDOL DECANOATE 100 MG/ML IM ONE (08:00)
[2016-07-08 09:15] VITALS: BP 161/84; PULSE 76
[2016-07-08] MEDS: NAPROXEN 500 MG TABLET (FP) PO SCH (09:16)
[2016-07-08] MEDS: RANITIDINE HCL 150 MG TABLET (FP) PO SCH (09:16)
[2016-07-08] MEDS: amLODIPine BESYLATE 5 MG TABLET (FP) PO SCH (09:16)
[2016-07-08] MEDS: LISINOPRIL 5 MG TABLET (FP) PO SCH (09:16)
[2016-07-08] MEDS: CYCLOBENZAPRINE HCL 10 MG TABLET (FP) PO SCH (09:16)
[2016-07-08] MEDS: PRENATAL VITAMINS W/ FOLIC ACID TABLET (FP) PO SCH (09:16)
[2016-07-08] MEDS: BUDESONIDE/FORMETEROL FUMARATE 160/4.5 mcg INHALER IH SCH (09:16)
--- NOTE | 2016-07-08 09:27 | PN ---
Psychiatric Progress Note Vital Signs: Vital Signs Period Temp Pulse Resp BP Sys/Tobar Pulse Ox Last 24 Hr 97.3 F 69-76 18-18 103-161/75-84 Date of Session: 07/08/16 Chief Complaint:: Discharge visit HPI: PAtient addressed Alcohol,Cocaine and Cannabis dependence comorbid with Schizophrenia. ROS: Signficant for Anemia,BA,GERD,HTN. Current Medications: Active Medications Generic Name Dose Route Start Last Admin Trade Name Freq PRN Reason Stop Dose Admin Acetaminophen 650 mg 06/21/16 15:41 07/01/16 10:03 Tylenol - PO 650 mg Q4H PRN Administration PAIN Al Hydroxide/Mg Hydroxide 30 ml 06/21/16 15:41 Mylanta Oral Suspension - PO Q6H PRN DYSPEPSIA Albuterol Sulfate 2 puff 06/21/16 15:45 07/07/16 12:57 Ventolin Hfa Inhaler - IH 2 inh Q4H PRN Administration SHORT OF BREATH/WHEEZING Albuterol/Ipratropium 1 amp 06/21/16 15:46 Duoneb - NEB Q6H PRN SHORTNESS OF BREATH Amlodipine Besylate 5 mg 06/22/16 10:00 07/08/16 09:16 Norvasc - PO 5 mg DAILY JUAN Administration Budesonide/Formoterol Fumarate 2 puff 06/21/16 22:00 07/08/16 09:16 Symbicort 160/4.5mcg - IH 2 puff BID JUAN Administration Cyclobenzaprine HCl 10 mg 07/01/16 12:54 07/08/16 09:16 Flexeril - PO 10 mg BID JUAN Administration Diphenhydramine HCl 50 mg 06/21/16 15:41 Benadryl - PO HSMR1 PRN INSOMNIA Docusate Sodium 100 mg 06/21/16 22:00 07/08/16 07:07 Colace - PO 100 mg TID JUAN Administration Eucalyptus/Menthol/Phenol/Sorbitol 1 each 06/21/16 15:41 Cepastat Lozenge - MM Q4H PRN SORE THROAT Ferrous Sulfate 325 mg 06/21/16 18:15 07/08/16 07:07 Feosol - PO 325 mg BIDWM JUAN Administration Guaifenesin 10 ml 06/21/16 15:41 Robitussin Dm - PO Q6H PRN COUGH Hydroxyzine Pamoate 50 mg 06/21/16 15:41 Vistaril - PO Q4H PRN AGITATION Lisinopril 5 mg 06/22/16 10:00 07/08/16 09:16 Prinivil PO 5 mg DAILY JUAN Administration Loperamide HCl 4 mg 06/21/16 15:41 Imodium - PO Q6H PRN DIARRHEA Magnesium Citrate 300 ml 06/21/16 15:41 07/04/16 10:35 Citroma - PO 300 ml Q48H PRN Administration CONSTIPATION Magnesium Hydroxide 30 ml 06/21/16 15:41 07/03/16 13:03 Milk Of Magnesia - PO 30 ml DAILY PRN Administration CONSTIPATION Naproxen 500 mg 07/01/16 12:54 07/08/16 09:16 Naprosyn - PO 500 mg BID JUAN Administration Multivit/Folic Acid/Iron 1 tab 06/22/16 10:00 07/08/16 09:16 Vitamins (Sjr) - PO 1 tab DAILY JUAN Administration Pseudoephedrine/Triprolidine 1 combo 06/21/16 15:41 Actifed - PO TID PRN NASAL CONGESTION Ranitidine HCl 150 mg 06/21/16 22:00 07/08/16 09:16 Zantac - PO 150 mg BID JUAN Administration Thiamine HCl 100 mg 06/21/16 22:00 07/07/16 21:13 Vitamin B1 - PO 100 mg HS JUAN Administration Current Side Effect: No Lab tests ordered: No Lab tests reviewed: Yes Provider note:: Patient completed this program today.She has met her treatment goals and will continue to address her issues on outptient basis at [facility] outpatient drug rehabilitation program.Patient continues to find that Haldol Decanoate 100 mg po IM every 3 weeks helps her to stay stable,reducing auditory hallucinations,paranoid feeling ,helping to clear "her thoughts". Patient is stable for discharge today,supportive therapy,psychoeducation provided. Total face to face time:: 30 Mental Status Exam - Mental Status Exam Alert and Oriented to: Time, Place, Person Cognitive Function: Grossly Intact Patient Appearance: Well Groomed Mood: Euthymic Affect: Mood Congruent, Normal Range Patient Behavior: Cooperative Speech Pattern: Clear Voice Loudness: Normal Thought Process: Goal Oriented Thought Disorder: Being Controlled Hallucinations: Denies Suicidal Ideation: Denies Homicidal Ideation: Denies Insight/Judgement: Fair Sleep: Fair Appetite: Good Muscle strength/Tone: Normal Gait/Station: Normal Psychiatric Treatment Plan - Problem List (1) Alcohol dependence Current Visit: Yes (2) Anemia Current Visit: Yes (3) Asthma Current Visit: Yes (4) Cannabis dependence Current Visit: Yes (5) Cocaine dependence Current Visit: Yes (6) Essential hypertension Current Visit: Yes (7) GERD (gastroesophageal reflux disease) Current Visit: Yes (8) Schizophrenia Current Visit: Yes
== END 2016-07-08 09:33 | disposition home or self-care (01) | DRG 772 ==
LOC: YASAS 13:33 → Y3E 15:56
PROVIDERS: ADMIT Psychiatry & Neurology Psychiatry; ATTEND Psychiatry & Neurology Psychiatry
PROC: HZ42ZZZ Group Counseling for Substance Abuse Treatment, Cognitive-Behavioral (ICD-10-PCS; principal; 2016-07-08)
DX: F10.20 Alcohol dependence, uncomplicated (principal); F14.20 Cocaine dependence, uncomplicated; F12.20 Cannabis dependence, uncomplicated; F20.9 Schizophrenia, unspecified; I10 Essential (primary) hypertension; J45.909 Unspecified asthma, uncomplicated; K21.9 Gastro-esophageal reflux disease without esophagitis; D64.9 Anemia, unspecified
CPT/HCPCS: 81003; 93005; 93010

== ENCOUNTER 2017-01-21 08:11 | Emergency (ER) | payer OTHER ==
[2017-01-21 08:19] VITALS: TEMP 97.7; BMI 39.3
[2017-01-21] MEDS ORDERED: KETOROLAC TROMETHAMINE 60 MG/2 ML VIAL IM ONE (08:36)
[2017-01-21 09:04] LABS: BASOPHIL 0.8 % (0-2.0); EOSINOPHIL 2.8 % (0-4.5); MCH 30.5 pg (25.7-33.7); MCHC 32.5 g/dl (32.0-36.0); MEAN CELL VOLUME 93.9 fl (80-96); MEAN PLT VOLUME 8.3 fl (7.5-11.1); NEUTROPHILS 64.5 % (42.8-82.8); PLATELET COUNT 207 K/MM3 (134-434); RDW 15.3 % (11.6-15.6); WHITE BLOOD COUNT 4.8 K/mm3 (4.0-10.0)
[2017-01-21] MEDS ORDERED: KETOROLAC TROMETHAMINE 60 MG/2 ML VIAL ONE (09:04)
--- NOTE | 2017-01-21 09:21 | PDOC ---
History of Present Illness - General Chief Complaint: Edema Stated Complaint: SWOLLEN LEGS AND BACK APIN Time Seen by Provider: 01/21/17 08:27 History Source: Patient - History of Present Illness Occurred: reports: other Lower Extremity Pain Location: bilateral: other Past History - Past Medical History Allergies/Adverse Reactions: Allergies Allergy/AdvReac Type Severity Reaction Status Date / Time tomato Allergy Severe Hives Verified 01/21/17 08:15 No Known Drug Allergies Allergy Verified 01/21/17 08:15 Home Medications: Ambulatory Orders Zolpidem Tartrate [Ambien] 10 mg PO HS 06/21/16 Amlodipine Besylate 5 mg PO DAILY #30 tablet 06/28/16 Docusate Sodium [Colace -] 100 mg PO TID #90 capsule 06/28/16 Ferrous Sulfate 325 mg PO BID #60 tablet 06/28/16 Lisinopril 5 mg PO DAILY #30 tablet 06/28/16 Anemia: Yes Asthma: Yes (ON MDI) Cancer: No Cardiac Disorders: No CVA: No COPD: No CHF: No Dementia: No Diabetes: No GI Disorders: Yes Disorders: No HTN: Yes (ON MEDS.) Hypercholesterolemia: No Kidney Stones: No Liver Disease: No Suicide Attempt (Hx): No Seizures: No Thyroid Disease: No Other medical history: chronic back pain - Reproductive History PID: No - Immunization History Immunization Up to Date: No - Psycho/Social/Smoking Cessation Hx Anxiety: No Suicidal Ideation: No Smoking History: Current every day smoker Have you smoked in the past 12 months: Yes Number of Cigarettes Smoked Daily: 5 Cigars Per Day: 0 Information on smoking cessation initiated: Yes 'Breaking Loose' booklet given: 01/21/17 Hx Alcohol Use: No Drug/Substance Use Hx: No Substance Use Type: Alcohol, Cocaine, Marijuana Hx Substance Use Treatment: Yes (multiple rehabs,detox treatments in the past) Review of Systems - Review of Systems Constitutional: No: Chills, Fever Respiratory: No: Shortness of Breath Cardiac (ROS): No: Chest Pain, Palpitations *Physical Exam - Vital Signs Last Vital Signs Temp Pulse Resp BP Pulse Ox 97.7 F 74 18 187/76 100 01/21/17 08:16 01/21/17 08:16 01/21/17 08:16 01/21/17 08:16 01/21/17 08:16 - Physical Exam General Appearance: Yes: Appropriately Dressed. No: Apparent Distress HEENT: positive: Normal Voice Neck: positive: Supple Respiratory/Chest: positive: Lungs Clear, Normal Breath Sounds. negative: Respiratory Distress Cardiovascular: positive: Regular Rate, S1, S2 Gastrointestinal/Abdominal: positive: Soft. negative: Tender Extremity: positive: Tender (minimally tender diffusely to b/l LE, no erythema, skin warm w/ intact pedal pulses), Pedal Edema Integumentary: positive: Dry, Warm Neurologic: positive: Fully Oriented, Alert, Normal Mood/Affect ED Treatment Course - LABORATORY CBC & Chemistry Diagram: 01/21/17 08:50 01/21/17 08:50 - ADDITIONAL ORDERS Additional order review: 01/21/17 08:50 RBC 3.81 MCV 93.9 MCHC 32.5 RDW 15.3 MPV 8.3 Neutrophils % 64.5 D Lymphocytes % 21.9 D Monocytes % 10.0 Eosinophils % 2.8 Basophils % 0.8 - RADIOLOGY Radiology Studies Ordered: Category Date Time Status CHEST X-RAY PORTABLE* [RAD] Stat Radiology 01/21/17 08:27 Ordered - Medications Given in the ED: ED Medications Discontinued Medications Generic Name Dose Route Start Last Admin Trade Name Freq PRN Reason Stop Dose Admin Ketorolac Tromethamine 60 mg 01/21/17 08:36 01/21/17 09:10 Toradol Injection - IM 01/21/17 08:37 Not Given ONCE ONE Medical Decision Making - Medical Decision Making 01/21/17 09:16 61-year-old female, history of hypertension, chronic back pain, on Percocet active cocaine and alcohol abuse, here with bilateral lower extremity swelling and pain x several weeks. States she's had multiple ER visits to [facility] with negative ultrasound and labs, but here because pain persists and states it hurts to walk. Patient currently has no narcotics at home. Denies chest pain, shortness of breath, fever or chills. Patient also requesting admission for detox. States she last used cocaine last night but has not drank ETOH in "a while" See exam B/L LE edema s/p neg w/u including neg DVt study at [facility] recently No cp/sob Is on a CCB which is known to cause peripheral edema Possibly venous stasis No e/o infection or acute arterial cause Do not see further need for w/u in ED, m/l need pmd f/u but as pt req admission to inpt detox, will do medical w/u and discharge w/ security to [facility]. Of note pt was admitted to [facility] 06/25 for ETOH/cocaine and marijuana abuse 01/21/17 09:22 01/21/17 09:[address] Sheng Rivas at [facility] who accepts pt at this time. States patient most likely will go to detox as last alcohol and cocaine use was last night. Patient pending Utox, and then will be discharged to go over to [facility] with security. Patient aware of plan 01/21/17 10:31 U tox positive for cocaine. Patient stable to be transported to [facility] with security *DC/Admit/Observation/Transfer Diagnosis at time of Disposition: Edema extremities Alcohol dependence Qualifiers: Substance use status: unspecified alcohol-induced disorder Qualified Code(s): F10.29 - Alcohol dependence with unspecified alcohol-induced disorder Cocaine dependence Qualifiers: Substance use status: with unspecified cocaine-induced disorder Qualified Code( s): F14.29 - Cocaine dependence with unspecified cocaine-induced disorder - Discharge Dispostion Disposition: HOME Condition at time of disposition: Good - Patient Instructions Printed Discharge Instructions: DI for Peripheral Edema -- Bilateral Additional Instructions: The cause of your lower leg swelling is unclear at this time. You are on a calcium channel zay (amlodipine) which is known to cause peripheral edema. Symptoms may also be due to faulty veins in the legs. After your stay at detox /rehabilitation, please follow-up with your primary care physician for further evaluation
[2017-01-21 09:23] LABS: ALBUMIN 3.4 g/dl (3.4-5.0); ANION GAP 7 (8-16); BILIRUBIN,TOTAL 0.7 mg/dL (0.2-1.0); CALCIUM 8.6 mg/dL (8.5-10.1); CO2 26 mmol/L (21-32); CREATININE 1.2 mg/dL (0.55-1.02); GLUCOSE,RANDOM 86 mg/dL (74-106); SGOT/AST 33 U/L (15-37); SGPT/ALT 39 U/L (12-78); TOT PROT 6.7 g/dl (6.4-8.2)
[2017-01-21 09:25] LABS: ALK PHOS 70 U/L (45-117); CPK 561 IU/L (26-192); TROPONIN I < 0.02 ng/ml (0.00-0.05)
[2017-01-21 10:12] LABS: URINE APPEARANCE SLCLOUDY; URINE BILIRUBIN NEGATIVE (NEGATIVE); URINE BLOOD 1+ (NEGATIVE); URINE COLOR LTYELLOW; URINE GLUCOSE (UA) NEGATIVE (NEGATIVE); URINE KETONE 1+ (NEGATIVE); URINE LEUK ESTERASE NEGATIVE (NEGATIVE); URINE MARIJUANA THC NEGATIVE ng/ml (CUTOFF=50); URINE NITRITE NEGATIVE (NEGATIVE); URINE PROTEIN NEGATIVE (NEGATIVE); URINE UROBILINOGEN NEGATIVE mg/dL (0.2-1.0)
--- NOTE | 2017-01-21 10:18 | EKG ---
Test Reason : Blood Pressure : / mmHG Vent. Rate : 066 BPM Atrial Rate : 066 BPM P-R Int : 138 ms QRS Dur : 082 ms QT Int : 436 ms P-R-T Axes : 079 -17 -01 degrees QTc Int : 457 ms POOR DATA QUALITY, INTERPRETATION MAY BE ADVERSELY AFFECTED bASELINE ARTIFACTS NORMAL SINUS RHYTHM MINIMAL VOLTAGE CRITERIA FOR LVH, MAY BE NORMAL VARIANT CANNOT RULE OUT ANTEROSEPTAL , AGE UNDETERMINED ABNORMAL ECG WHEN COMPARED WITH ECG OF 21-JUN-2016 22:24, NO SIGNIFICANT CHANGE WAS FOUND CORRELATE CLINICALLY. Confirmed by MARSHA ROLON MD ([id number]) on 01/21/2017 10:17:35 AM Referred By: Confirmed By:MARSHA ROLON MD
--- NOTE | 2017-01-21 10:51 | PDOC ---
*Physical Exam - Vital Signs Last Vital Signs Temp Pulse Resp BP Pulse Ox 97.7 F 74 18 187/76 100 01/21/17 08:16 01/21/17 08:16 01/21/17 08:16 01/21/17 08:16 01/21/17 08:16 ED Treatment Course - LABORATORY CBC & Chemistry Diagram: 01/21/17 08:50 01/21/17 08:50 - ADDITIONAL ORDERS Additional order review: Laboratory Results 01/21/17 01/21/17 01/21/17 09:52 09:52 08:50 Sodium Potassium Chloride Carbon Dioxide Anion Gap BUN Creatinine Creat Clearance w eGFR Random Glucose Calcium Total Bilirubin AST ALT Alkaline Phosphatase Creatine Kinase Creatine Kinase Index CK-MB (CK-2) Troponin I B-Natriuretic Peptide 152.44 H Total Protein Albumin Urine Color Ltyellow Urine Appearance Slcloudy Urine pH 5.0 Urine Protein Negative Urine Glucose (UA) Negative Urine Ketones 1+ H Urine Blood 1+ H Urine Nitrite Negative Urine Bilirubin Negative Urine Urobilinogen Negative Ur Leukocyte Esterase Negative Opiates Screen Negative Methadone Screen Negative Barbiturate Screen Negative Phencyclidine Screen Negative Ur Amphetamines Screen Negative MDMA (Ecstasy) Screen Negative Benzodiazepines Screen Negative Cocaine Screen Positive U Marijuana (THC) Screen Negative 01/21/17 08:50 Sodium 140 Potassium 4.0 Chloride 107 Carbon Dioxide 26 Anion Gap 7 L BUN 19 H Creatinine 1.2 H Creat Clearance w eGFR 45.98 Random Glucose 86 Calcium 8.6 Total Bilirubin 0.7 AST 33 D ALT 39 D Alkaline Phosphatase 70 Creatine Kinase 561 H Creatine Kinase Index 1.3 CK-MB (CK-2) 7.828 H Troponin I < 0.02 B-Natriuretic Peptide Total Protein 6.7 Albumin 3.4 Urine Color Urine Appearance Urine pH Urine Protein Urine Glucose (UA) Urine Ketones Urine Blood Urine Nitrite Urine Bilirubin Urine Urobilinogen Ur Leukocyte Esterase Opiates Screen Methadone Screen Barbiturate Screen Phencyclidine Screen Ur Amphetamines Screen MDMA (Ecstasy) Screen Benzodiazepines Screen Cocaine Screen U Marijuana (THC) Screen 01/21/17 08:50 RBC 3.81 MCV 93.9 MCHC 32.5 RDW 15.3 MPV 8.3 Neutrophils % 64.5 D Lymphocytes % 21.9 D Monocytes % 10.0 Eosinophils % 2.8 Basophils % 0.8 - Medications Given in the ED: ED Medications Discontinued Medications Generic Name Dose Route Start Last Admin Trade Name Enedina PRN Reason Stop Dose Admin Ketorolac Tromethamine 60 mg 01/21/17 08:36 01/21/17 09:10 Toradol Injection - IM 01/21/17 08:37 Not Given ONCE ONE Medical Decision Making - Medical Decision Making 01/21/17 10:50 Agree with PA's assessment, evaluation, and plan. 61 F with h/o PSA presents requesting detox. Pt with no acute complaints upon my interview. Last drink was last evening. No signs of acute withdrawal at this time. Pt sleeping comfortably in stretcher at time of exam. - labs - transfer to [facility] *DC/Admit/Observation/Transfer Diagnosis at time of Disposition: Edema extremities Alcohol dependence Qualifiers: Substance use status: unspecified alcohol-induced disorder Qualified Code(s): F10.29 - Alcohol dependence with unspecified alcohol-induced disorder Cocaine dependence Qualifiers: Substance use status: with unspecified cocaine-induced disorder Qualified Code( s): F14.29 - Cocaine dependence with unspecified cocaine-induced disorder - Discharge Dispostion Disposition: HOME Condition at time of disposition: Good - Referrals - Patient Instructions Printed Discharge Instructions: DI for Peripheral Edema -- Bilateral Additional Instructions: The cause of your lower leg swelling is unclear at this time. You are on a calcium channel zay (amlodipine) which is known to cause peripheral edema. Symptoms may also be due to faulty veins in the legs. After your stay at detox /rehabilitation, please follow-up with your primary care physician for further evaluation - Post Discharge Activity
[2017-01-21 10:54] VITALS: BP 159/72; PULSE 70
[2017-01-21 11:18] LABS: URINE HYALINE CAST 1 /lpf; URINE MUCUS RARE; URINE RBC 1 /hpf (0-3); URINE WBC 5 /hpf (3-5)
== END 2017-01-21 10:54 | disposition home or self-care (01) ==
LOC: JER 08:11
DX: R60.0 Localized edema (principal); F10.29 Alcohol dependence with unspecified alcohol-induced disorder; F14.29 Cocaine dependence with unspecified cocaine-induced disorder; D64.9 Anemia, unspecified; J45.909 Unspecified asthma, uncomplicated; I10 Essential (primary) hypertension; F17.210 Nicotine dependence, cigarettes, uncomplicated; Z91.018 Allergy to other foods; Z59.0 Homelessness
CPT/HCPCS: 36415; 71010-TC; 80053; 80307; 81003; 81015; 82553; 83880; 84484; 85025; 93005; 93010; 99283-25

== ENCOUNTER 2017-01-21 12:15 | Inpatient (IN) | payer OTHER ==
[2017-01-21 13:00] VITALS: BMI 39.3
--- NOTE | 2017-01-21 13:39 | HP ---
Admission [facility] Chief Complaint: i need help to stop drinking alcohol and cocaine,for rehab Allergies/Adverse Reactions: Allergies Allergy/AdvReac Type Severity Reaction Status Date / Time tomato Allergy Severe Hives Verified 01/21/17 13:22 No Known Drug Allergies Allergy Verified 01/21/17 13:22 History of Present Illness: this 61 years old female with alcohol,and cocaine dependence,for rehab,last treatment 06/21/16 to 07/08/16 [facility] multiple medical problems,htn,anemia,asthma,schizohrenia paranoid schizophrenia, gerd longest period of sobriety 10 years - Ebola screening Have you traveled outside of the country in the last 21 days: No Have you had contact with anyone from an Ebola affected area: No Have you been sick,other than usual withdrawal symptoms: No Do you have a fever: No - Review of Systems Constitutional: No Symptoms Reported EENT: reports: No Symptoms Reported Respiratory: reports: No Symptoms reported, Other (asthma) Cardiac: reports: No Symptoms Reported GI: reports: No Symptoms Reported : reports: No Symptoms Reported Musculoskeletal: reports: No Symptoms Reported Integumentary: reports: No Symptoms Reported Neuro: reports: No Symptoms reported Endocrine: reports: No Symptoms Reported Hematology: reports: Anemia Psychiatric: reports: No Sypmtoms Reported (paraniod schizophrenia), Judgement Intact, Mood/Affect Appropiate, Depressed Patient History - Patient Medical History Hx Anemia: Yes Hx Asthma: Yes (ON MDI) Hx Chronic Obstructive Pulmonary Disease (COPD): No Hx Cancer: No Hx Cardiac Disorders: No Hx Congestive Heart Failure: No Hx Hypertension: Yes (ON MEDS.) Hx Hypercholesterolemia: No Hx Pacemaker: No HX Cerebrovascular Accident: No Hx Seizures: No Hx Dementia: No Hx Diabetes: No Hx Gastrointestinal Disorders: Yes (onmed) Hx Liver Disease: No Hx Genitourinary Disorders: No Hx Sexually Transmitted Disorders: No Hx Renal Disease (ESRD): No Hx Thyroid Disease: No Hx Human Immunodeficiency Virus (HIV): No (last 09/23 negative) Hx Hepatitis C: No Hx Depression: Yes Hx Suicide Attempt: No Hx Bipolar Disorder: No Hx Schizophrenia: Yes Other Medical History: no suicidal,no homicidal - Patient Surgical History Past Surgical History: No - PPD History Previous Implant?: Yes Date: 06/23/16 Results: 0 mm PPD to be Administered?: No - Reproductive History Patient is a Female of Child Bearing Age (11 -55 yrs old): No Patient : No - Smoking Cessation Smoking history: Current every day smoker Have you smoked in the past 12 months: Yes Aproximately how many cigarettes per day: 5 Cigars Per Day: 0 Hx Chewing Tobacco Use: No Initiated information on smoking cessation: Yes 'Breaking Loose' booklet given: 01/21/17 - Substance & Tx. History Hx Alcohol Use: Yes Hx Substance Use: Yes Substance Use Type: Alcohol, Cocaine Hx [facility] - Substances Abused Alcohol Route: Oral Frequency: 1-2 times per week Amount used: 2 22 OZ BEERS Age of first use: 18 Date of Last Use: 01/20/17 Cocaine Route: Smoking Frequency: 1-2 times per week Amount used: $150 Age of first use: 29 Date of Last Use: 01/20/17 Family Disease History - Family Disease History Family History: Denies Admission Physical Exam [facility] - Vital Signs Vital Signs: Vital Signs - 24 hr 01/21/17 12:57 Temperature 99.1 F Pulse Rate 77 Respiratory 18 Rate Blood Pressure 150/84 - Physical General Appearance: Yes: Within Normal Limits HEENTM: Yes: Within Normal Limits, Hearing grossly Normal, Normal ENT Inspection , Pharynx Normal Respiratory: Yes: Within Normal Limits, Lungs Clear, Normal Breath Sounds Neck: Yes: Within Normal Limits Breast: Yes: Breast Exam Deferred Cardiology: Yes: Within Normal Limits, Regular Rhythm, Regular Rate, S1, S2 Abdominal: Yes: Within Normal Limits, Normal Bowel Sounds, Non Tender, Flat, Soft Genitourinary: Yes: Within Normal Limits Back: Yes: Within Normal Limits, Normal Inspection Musculoskeletal: Yes: Within Normal Limits Extremities: Yes: Within Normal Limits, Other (edema both legs) Neurological: Yes: ob/gyn doctor II-XII NML intact, Fully Oriented, Alert, Motor Strength 5/5 Integumentary: Yes: Within Normal Limits Lymphatic: Yes: Within Normal Limits - Diagnostic (1) Alcohol dependence Current Visit: No Status: Chronic Qualifiers: Substance use status: unspecified alcohol-induced disorder Qualified Code(s): F10.29 - Alcohol dependence with unspecified alcohol-induced disorder (2) Cocaine dependence Current Visit: No Status: Chronic Qualifiers: Substance use status: with unspecified cocaine-induced disorder Qualified Code(s): F14.29 - Cocaine dependence with unspecified cocaine-induced disorder (3) Edema extremities Current Visit: No Status: Acute (4) Anemia Current Visit: No Status: Chronic (5) Asthma Current Visit: No Status: Chronic (6) Essential hypertension Current Visit: No Status: Chronic (7) GERD (gastroesophageal reflux disease) Current Visit: No Status: Chronic (8) Schizophrenia Current Visit: No Status: Chronic Cleared for Admission [facility] - Detox or Rehab Claeared for Rehab Admission: Yes [facility] Breath Alcohol Content Breath Alcohol Content: 0 Urine Pregancy Test - Result Urine Test Results: Negative- NO Line Present Urine Drug Screen - Results Drug Screen Negative: No Urine Drug Screen Results: KEKE-Cocaine
[2017-01-21] MEDS ORDERED: ACETAMINOPHEN 325 MG TABLET (FP) PO PRN (15:54)
[2017-01-21] MEDS ORDERED: MAG HYDROX/AL HYDROX/SIMETH 30 ML UNIT-DOSE CUP PO PRN (15:54)
[2017-01-21] MEDS ORDERED: guaiFENesin/D-METHORPHAN HB 10 ML UNIT-DOSE CUPS PO PRN (15:54)
[2017-01-21] MEDS ORDERED: MAGNESIUM CITRATE 300 ML BOTTLE PO PRN (15:54)
[2017-01-21] MEDS ORDERED: MENTHOL/PHENOL 1 EACH UD MM PRN (15:54)
[2017-01-21] MEDS ORDERED: MAGNESIUM HYDROX 2400MG/30ML ORAL SUSPENSION 30 ML CUP PO PRN (15:54)
[2017-01-21] MEDS ORDERED: P-EPHED 60MG/TRIPROLIDI 2.5MG TABLET PO PRN (15:54)
[2017-01-21] MEDS ORDERED: LOPERAMIDE HCL 2 MG CAPSULE PO PRN (15:54)
[2017-01-21] MEDS ORDERED: hydrOXYzine PAMOATE 25 MG CAPSULE (FP) PO PRN (16:03)
[2017-01-21] MEDS: FERROUS SO4 325 MG TABLET (FP) PO SCH (19:21)
[2017-01-21] MEDS: DOCUSATE SODIUM 100 MG CAPSULE (FP) PO SCH (21:16)
[2017-01-21] MEDS: THIAMINE HCL 100 MG TABLET (FP) PO SCH (21:16)
[2017-01-21 23:19] LABS: URINE APPEARANCE CLOUDY; URINE BILIRUBIN NEGATIVE (NEGATIVE); URINE BLOOD NEGATIVE (NEGATIVE); URINE COLOR YELLOW; URINE GLUCOSE (UA) NEGATIVE (NEGATIVE); URINE KETONE 1+ (NEGATIVE); URINE LEUK ESTERASE NEGATIVE (NEGATIVE); URINE NITRITE NEGATIVE (NEGATIVE); URINE PROTEIN NEGATIVE (NEGATIVE); URINE UROBILINOGEN NEGATIVE mg/dL (0.2-1.0)
[2017-01-22] MEDS: DOCUSATE SODIUM 100 MG CAPSULE (FP) PO SCH ×3 (06:28→21:59)
--- NOTE | 2017-01-22 06:34 | HP ---
Psychiatrist Admission - Data Date of interview: 01/22/17 Identifying data: This is the multiple [facility] admissions for this 61 years old single Black female, unemployed on SSI, homeless Medical History: Significant for Asthma, HTN, GERD and Arthritis both knees & back. Smokes 5 cigarettes daily Psychiatric History: Reports long history of mental illness since age 14 when she was admitted to [facility] for auditory hallucinations and paranoid delusions. She was diagnosed with Schizoaffective Disorder. Reports 3-4 subsequent admissions all at [facility] with the most recent more than 10 years go for [facility]. She currently receives [facility] care at [facility] in [place] and she is prescribed Haldol Decanoate 100 mg IM Q monthy. Told feature writer that she received her last injection on 01/16/17. Denies history of previous suicidal attempt. At present, reports feeling irritable. However, she denies experiencing psychotic, manic or depressive symptoms as well as SI,HI. Physical/Sexual Abuse/Trauma History: Denies history of emotional, physical or sexual abuse as well as DV relationship Additional Comment: Reports history of 3-4 previous misdemeanor arrests. no current probation Vital Signs: Vital Signs - 24 hr 01/21/17 01/22/17 01/22/17 12:57 00:30 03:30 Temperature 99.1 F Pulse Rate 77 Respiratory 18 18 18 Rate Blood Pressure 150/84 Allergies/Adverse Reactions: Allergies Allergy/AdvReac Type Severity Reaction Status Date / Time tomato Allergy Severe Hives Verified 01/21/17 13:22 No Known Drug Allergies Allergy Verified 01/21/17 13:22 Date of last physical exam: 01/21/17 Concur with the findings of this exam: Yes - Substance Abuse/Tx History Hx Alcohol Use: Yes Hx Substance Use: Yes Substance Use Type: Alcohol (Started drinking alcohol at age 18, consumes 2x 22oz of beer 1-2 times weekly. Last drink on 01/20/17), Cocaine (Started smoking crack cocaine at age 29, consumes $150 worth 1-2 times weekly. Last smoked on ) Hx Substance Use Treatment: Yes (Multiple previous inpt rehab @ [facility]) - Admission Criteria Previous failed treatment: No Poor recovery environment: Yes Comorbidities: Yes Mental Status Exam - Mental Status Exam Alert and Oriented to: Time, Place, Person Cognitive Function: Fair Patient Appearance: Well Groomed Mood: Irritable Affect: Appropriate Patient Behavior: Cooperative Speech Pattern: Clear Voice Loudness: Normal Thought Process: Intact, Goal Oriented Thought Disorder: Not Present Hallucinations: Denies Suicidal Ideation: Denies Homicidal Ideation: Denies Insight/Judgement: Fair Sleep: Fair Appetite: Good Muscle strength/Tone: Normal Gait/Station: Normal Psychiatric Findings - Problem List ([place] 1, 2,3) (1) Alcohol dependence Current Visit: No Status: Chronic Qualifiers: Substance use status: unspecified alcohol-induced disorder Qualified Code(s): F10.29 - Alcohol dependence with unspecified alcohol-induced disorder (2) Cocaine dependence Current Visit: No Status: Chronic Qualifiers: Substance use status: with unspecified cocaine-induced disorder Qualified Code(s): F14.29 - Cocaine dependence with unspecified cocaine-induced disorder (3) Nicotine dependence Current Visit: Yes Status: Acute (4) Schizoaffective disorder Current Visit: Yes Status: Acute (5) Paranoid schizophrenia Current Visit: Yes Status: Ruled-out (6) Arthritis Current Visit: No Status: Acute (7) Anemia Current Visit: No Status: Chronic (8) Asthma Current Visit: No Status: Chronic (9) Essential hypertension Current Visit: No Status: Chronic (10) GERD (gastroesophageal reflux disease) Current Visit: No Status: Chronic - Initial Treatment Plan Initial Treatment Plan: Patient Attends [facility] in [place], [place]. She is on HaldolDecanoate 100 mg IM Q monthly. She last received it on . Will monitor progress and observe for sign of decompensation
[2017-01-22] MEDS: FERROUS SO4 325 MG TABLET (FP) PO SCH ×2 (07:13→17:27)
[2017-01-22 10:16] LABS: MCHC 32.1 g/dl (32.0-36.0); MEAN CELL VOLUME 93.3 fl (80-96); MEAN PLT VOLUME 9.2 fl (7.5-11.1); PLATELET COUNT 213 K/MM3 (134-434); RDW 15.4 % (11.6-15.6); WHITE BLOOD COUNT 5.8 K/mm3 (4.0-10.0)
[2017-01-22] MEDS: amLODIPine BESYLATE 10 MG TABLET (FP) PO SCH (10:42)
[2017-01-22] MEDS: LISINOPRIL 10 MG TABLET (FP) PO SCH (10:42)
[2017-01-22] MEDS: PRENATAL VITAMINS W/ FOLIC ACID TABLET (FP) PO SCH (10:42)
[2017-01-22] MEDS ORDERED: PNEUMOCOCCAL 23 VACCINE 0.5 ML VIAL IM ONE (12:00)
[2017-01-22] MEDS ORDERED: PNEUMOC 13-VAL CONJ-DIP CRM/PF 0.5 ML DISP.SYRIN IM ONE (12:00)
[2017-01-22 14:55] LABS: ALK PHOS 66 U/L (45-117); ANION GAP 5 (8-16); BILIRUBIN,TOTAL 0.4 mg/dL (0.2-1.0); CALCIUM 8.5 mg/dL (8.5-10.1); CO2 30 mmol/L (21-32); CREATININE 1.1 mg/dL (0.55-1.02); GLUCOSE,RANDOM 91 mg/dL (74-106); SGOT/AST 19 U/L (15-37); SGPT/ALT 30 U/L (12-78); TOT PROT 5.8 g/dl (6.4-8.2)
--- NOTE | 2017-01-22 16:41 | EKG ---
Test Reason : Blood Pressure : / mmHG Vent. Rate : 077 BPM Atrial Rate : 077 BPM P-R Int : 134 ms QRS Dur : 088 ms QT Int : 402 ms P-R-T Axes : 057 -18 048 degrees QTc Int : 454 ms NORMAL SINUS RHYTHM LOW VOLTAGE QRS BORDERLINE ECG WHEN COMPARED WITH ECG OF 21-JAN-2017 08:41, T WAVE INVERSION NO LONGER EVIDENT IN INFERIOR LEADS Confirmed by MARSHA ROLON MD ([id number]) on 01/22/2017 4:41:02 PM Referred By: James Carmona Confirmed By:MARSHA ROLON MD
[2017-01-22] MEDS: THIAMINE HCL 100 MG TABLET (FP) PO SCH (21:59)
[2017-01-23] MEDS: DOCUSATE SODIUM 100 MG CAPSULE (FP) PO SCH ×3 (06:14→21:15)
[2017-01-23] MEDS: FERROUS SO4 325 MG TABLET (FP) PO SCH ×2 (07:22→18:06)
[2017-01-23] MEDS: PRENATAL VITAMINS W/ FOLIC ACID TABLET (FP) PO SCH (09:52)
[2017-01-23] MEDS: LISINOPRIL 10 MG TABLET (FP) PO SCH (09:52)
[2017-01-23] MEDS: amLODIPine BESYLATE 10 MG TABLET (FP) PO SCH (09:52)
[2017-01-23 10:13] LABS: HIV 1 & 2 AB NEGATIVE; HIV 1 AGp24 NEGATIVE
--- NOTE | 2017-01-23 15:58 | PN ---
[facility] Progress Note Note: c/o rash on UE & LE more pronounced earlier today. she has allergy to tomatoes only. Dx. : Allergic rash causing agent unknown at this time P : Benadryl & HC 1%
[2017-01-23] MEDS: HYDROCORTISONE 1% TOPICAL CREAM 30 GM TUBE TP SCH ×2 (18:06→21:16)
[2017-01-23] MEDS: THIAMINE HCL 100 MG TABLET (FP) PO SCH (21:15)
[2017-01-23] MEDS: diphenhydrAMINE HCL 50 MG CAPSULE PO PRN (21:17)
[2017-01-24] MEDS: DOCUSATE SODIUM 100 MG CAPSULE (FP) PO SCH ×3 (06:45→21:52)
[2017-01-24] MEDS: FERROUS SO4 325 MG TABLET (FP) PO SCH ×2 (07:33→19:11)
[2017-01-24] MEDS: amLODIPine BESYLATE 10 MG TABLET (FP) PO SCH (10:59)
[2017-01-24] MEDS: PRENATAL VITAMINS W/ FOLIC ACID TABLET (FP) PO SCH (10:59)
[2017-01-24] MEDS: LISINOPRIL 10 MG TABLET (FP) PO SCH (10:59)
[2017-01-24] MEDS: HYDROCORTISONE 1% TOPICAL CREAM 30 GM TUBE TP SCH ×4 (11:00→21:53)
[2017-01-24] MEDS: diphenhydrAMINE HCL 25 MG CAPSULE (FP) PO PRN ×2 (12:26→19:27)
[2017-01-24] MEDS: ALBUTEROL SO4 6.7 GM HFA INHALER IH PRN (12:27)
[2017-01-24] MEDS: THIAMINE HCL 100 MG TABLET (FP) PO SCH (21:52)
[2017-01-24] MEDS: diphenhydrAMINE HCL 50 MG CAPSULE PO PRN (21:53)
[2017-01-25] MEDS: diphenhydrAMINE HCL 25 MG CAPSULE (FP) PO PRN ×2 (06:11→12:52)
[2017-01-25] MEDS: DOCUSATE SODIUM 100 MG CAPSULE (FP) PO SCH ×3 (06:11→21:04)
[2017-01-25] MEDS: FERROUS SO4 325 MG TABLET (FP) PO SCH ×2 (07:07→17:06)
[2017-01-25] MEDS: HYDROCORTISONE 1% TOPICAL CREAM 30 GM TUBE TP SCH ×4 (09:58→21:04)
[2017-01-25] MEDS: PRENATAL VITAMINS W/ FOLIC ACID TABLET (FP) PO SCH (09:59)
[2017-01-25] MEDS: LISINOPRIL 10 MG TABLET (FP) PO SCH (09:59)
[2017-01-25] MEDS: amLODIPine BESYLATE 10 MG TABLET (FP) PO SCH (09:59)
[2017-01-25] MEDS: ALBUTEROL SO4 6.7 GM HFA INHALER IH PRN (11:09)
[2017-01-25] MEDS: diphenhydrAMINE HCL 50 MG CAPSULE PO PRN (21:04)
[2017-01-25] MEDS: THIAMINE HCL 100 MG TABLET (FP) PO SCH (21:04)
[2017-01-26] MEDS: DOCUSATE SODIUM 100 MG CAPSULE (FP) PO SCH ×3 (06:10→21:02)
[2017-01-26] MEDS: diphenhydrAMINE HCL 25 MG CAPSULE (FP) PO PRN (06:10)
[2017-01-26] MEDS: FERROUS SO4 325 MG TABLET (FP) PO SCH ×2 (07:09→17:00)
[2017-01-26] MEDS: PRENATAL VITAMINS W/ FOLIC ACID TABLET (FP) PO SCH (09:51)
[2017-01-26] MEDS: LISINOPRIL 10 MG TABLET (FP) PO SCH (09:51)
[2017-01-26] MEDS: amLODIPine BESYLATE 10 MG TABLET (FP) PO SCH (09:51)
[2017-01-26] MEDS: HYDROCORTISONE 1% TOPICAL CREAM 30 GM TUBE TP SCH ×4 (09:52→21:02)
[2017-01-26] MEDS ORDERED: PT OWN MED DRAWER 7, Y5N ONE ×2 (09:53→15:10)
[2017-01-26] MEDS: diphenhydrAMINE HCL 50 MG CAPSULE PO PRN (21:02)
[2017-01-26] MEDS: THIAMINE HCL 100 MG TABLET (FP) PO SCH (21:02)
[2017-01-27] MEDS: DOCUSATE SODIUM 100 MG CAPSULE (FP) PO SCH ×3 (06:27→21:46)
[2017-01-27] MEDS: diphenhydrAMINE HCL 25 MG CAPSULE (FP) PO PRN (06:28)
[2017-01-27] MEDS: FERROUS SO4 325 MG TABLET (FP) PO SCH ×2 (07:40→17:00)
[2017-01-27] MEDS: HYDROCORTISONE 1% TOPICAL CREAM 30 GM TUBE TP SCH ×4 (10:12→21:53)
[2017-01-27] MEDS: LISINOPRIL 10 MG TABLET (FP) PO SCH (10:12)
[2017-01-27] MEDS: amLODIPine BESYLATE 10 MG TABLET (FP) PO SCH (10:12)
[2017-01-27] MEDS: PRENATAL VITAMINS W/ FOLIC ACID TABLET (FP) PO SCH (10:12)
[2017-01-27] MEDS: diphenhydrAMINE HCL 50 MG CAPSULE PO PRN (21:46)
[2017-01-27] MEDS: IBUPROFEN 400 MG TABLET (FP) PO PRN (21:46)
[2017-01-27] MEDS: THIAMINE HCL 100 MG TABLET (FP) PO SCH (21:46)
[2017-01-28] MEDS: DOCUSATE SODIUM 100 MG CAPSULE (FP) PO SCH ×3 (06:26→21:55)
[2017-01-28] MEDS: diphenhydrAMINE HCL 25 MG CAPSULE (FP) PO PRN ×3 (06:28→19:50)
[2017-01-28] MEDS: IBUPROFEN 400 MG TABLET (FP) PO PRN ×3 (06:28→19:50)
[2017-01-28] MEDS: FERROUS SO4 325 MG TABLET (FP) PO SCH ×2 (07:03→17:48)
[2017-01-28] MEDS: LISINOPRIL 10 MG TABLET (FP) PO SCH (09:50)
[2017-01-28] MEDS: HYDROCORTISONE 1% TOPICAL CREAM 30 GM TUBE TP SCH ×4 (09:50→22:01)
[2017-01-28] MEDS: PRENATAL VITAMINS W/ FOLIC ACID TABLET (FP) PO SCH (09:50)
[2017-01-28] MEDS: amLODIPine BESYLATE 10 MG TABLET (FP) PO SCH (09:50)
[2017-01-28] MEDS: THIAMINE HCL 100 MG TABLET (FP) PO SCH (21:55)
[2017-01-29] MEDS: DOCUSATE SODIUM 100 MG CAPSULE (FP) PO SCH ×3 (06:00→22:00)
[2017-01-29] MEDS: IBUPROFEN 400 MG TABLET (FP) PO PRN ×3 (06:06→22:02)
[2017-01-29] MEDS: diphenhydrAMINE HCL 25 MG CAPSULE (FP) PO PRN ×2 (06:06→12:18)
[2017-01-29] MEDS: FERROUS SO4 325 MG TABLET (FP) PO SCH ×2 (07:31→17:06)
[2017-01-29] MEDS: amLODIPine BESYLATE 10 MG TABLET (FP) PO SCH (11:00)
[2017-01-29] MEDS: PRENATAL VITAMINS W/ FOLIC ACID TABLET (FP) PO SCH (11:00)
[2017-01-29] MEDS: LISINOPRIL 10 MG TABLET (FP) PO SCH (11:00)
[2017-01-29] MEDS: HYDROCORTISONE 1% TOPICAL CREAM 30 GM TUBE TP SCH ×4 (11:09→23:50)
[2017-01-29] MEDS: THIAMINE HCL 100 MG TABLET (FP) PO SCH (22:00)
[2017-01-29] MEDS: diphenhydrAMINE HCL 50 MG CAPSULE PO PRN (22:00)
[2017-01-30] MEDS: IBUPROFEN 400 MG TABLET (FP) PO PRN ×2 (06:16→11:25)
[2017-01-30] MEDS: diphenhydrAMINE HCL 25 MG CAPSULE (FP) PO PRN (06:16)
[2017-01-30] MEDS: DOCUSATE SODIUM 100 MG CAPSULE (FP) PO SCH ×3 (06:16→21:27)
[2017-01-30] MEDS: FERROUS SO4 325 MG TABLET (FP) PO SCH ×2 (07:18→17:18)
[2017-01-30] MEDS: amLODIPine BESYLATE 10 MG TABLET (FP) PO SCH (10:06)
[2017-01-30] MEDS: LISINOPRIL 10 MG TABLET (FP) PO SCH (10:06)
[2017-01-30] MEDS: PRENATAL VITAMINS W/ FOLIC ACID TABLET (FP) PO SCH (10:06)
[2017-01-30] MEDS: HYDROCORTISONE 1% TOPICAL CREAM 30 GM TUBE TP SCH ×4 (10:06→21:25)
--- NOTE | 2017-01-30 12:10 | PN ---
[facility] Progress Note Note: pain in the back,leg,abdominal pain,use to take zantac 150mgs po bid for gerd motrin 600 mgs po q 6hrs prn for pain,flexeril 10 mgs po tid prn, for low back pain
[2017-01-30] MEDS: RANITIDINE HCL 150 MG TABLET (FP) PO SCH ×2 (13:50→21:27)
[2017-01-30] MEDS: IBUPROFEN 600 MG TABLET (FP) PO PRN (21:27)
[2017-01-30] MEDS: CYCLOBENZAPRINE HCL 10 MG TABLET (FP) PO PRN (21:27)
[2017-01-30] MEDS: THIAMINE HCL 100 MG TABLET (FP) PO SCH (21:27)
[2017-01-30] MEDS: diphenhydrAMINE HCL 50 MG CAPSULE PO PRN (21:27)
[2017-01-31] MEDS: DOCUSATE SODIUM 100 MG CAPSULE (FP) PO SCH ×3 (06:30→21:51)
[2017-01-31] MEDS: diphenhydrAMINE HCL 25 MG CAPSULE (FP) PO PRN (06:31)
[2017-01-31] MEDS: IBUPROFEN 600 MG TABLET (FP) PO PRN ×2 (06:31→21:53)
[2017-01-31] MEDS: CYCLOBENZAPRINE HCL 10 MG TABLET (FP) PO PRN ×2 (06:31→21:53)
[2017-01-31] MEDS: FERROUS SO4 325 MG TABLET (FP) PO SCH ×2 (07:13→17:02)
[2017-01-31] MEDS: LISINOPRIL 10 MG TABLET (FP) PO SCH (11:00)
[2017-01-31] MEDS: amLODIPine BESYLATE 10 MG TABLET (FP) PO SCH (11:00)
[2017-01-31] MEDS: PRENATAL VITAMINS W/ FOLIC ACID TABLET (FP) PO SCH (11:00)
[2017-01-31] MEDS: RANITIDINE HCL 150 MG TABLET (FP) PO SCH ×2 (11:00→21:51)
[2017-01-31] MEDS: HYDROCORTISONE 1% TOPICAL CREAM 30 GM TUBE TP SCH ×4 (12:23→21:51)
[2017-01-31] MEDS: diphenhydrAMINE HCL 50 MG CAPSULE PO PRN (21:51)
[2017-01-31] MEDS: THIAMINE HCL 100 MG TABLET (FP) PO SCH (21:51)
[2017-02-01] MEDS: DOCUSATE SODIUM 100 MG CAPSULE (FP) PO SCH ×3 (06:13→21:59)
[2017-02-01] MEDS: CYCLOBENZAPRINE HCL 10 MG TABLET (FP) PO PRN (06:15)
[2017-02-01] MEDS: IBUPROFEN 600 MG TABLET (FP) PO PRN ×2 (06:15→22:00)
[2017-02-01] MEDS: diphenhydrAMINE HCL 25 MG CAPSULE (FP) PO PRN (06:16)
[2017-02-01] MEDS: FERROUS SO4 325 MG TABLET (FP) PO SCH ×2 (07:04→17:13)
[2017-02-01] MEDS: amLODIPine BESYLATE 10 MG TABLET (FP) PO SCH (09:52)
[2017-02-01] MEDS: PRENATAL VITAMINS W/ FOLIC ACID TABLET (FP) PO SCH (09:52)
[2017-02-01] MEDS: HYDROCORTISONE 1% TOPICAL CREAM 30 GM TUBE TP SCH ×4 (09:52→23:13)
[2017-02-01] MEDS: RANITIDINE HCL 150 MG TABLET (FP) PO SCH ×2 (09:52→21:59)
[2017-02-01] MEDS: LISINOPRIL 10 MG TABLET (FP) PO SCH (09:52)
[2017-02-01] MEDS: THIAMINE HCL 100 MG TABLET (FP) PO SCH (21:59)
[2017-02-01] MEDS: diphenhydrAMINE HCL 50 MG CAPSULE PO PRN (22:01)
[2017-02-02] MEDS: IBUPROFEN 600 MG TABLET (FP) PO PRN ×2 (07:02→21:36)
[2017-02-02] MEDS: diphenhydrAMINE HCL 25 MG CAPSULE (FP) PO PRN (07:02)
[2017-02-02] MEDS: FERROUS SO4 325 MG TABLET (FP) PO SCH ×2 (07:02→17:10)
[2017-02-02] MEDS: DOCUSATE SODIUM 100 MG CAPSULE (FP) PO SCH ×3 (07:02→21:37)
[2017-02-02] MEDS: PRENATAL VITAMINS W/ FOLIC ACID TABLET (FP) PO SCH (09:48)
[2017-02-02] MEDS: LISINOPRIL 10 MG TABLET (FP) PO SCH (09:48)
[2017-02-02] MEDS: RANITIDINE HCL 150 MG TABLET (FP) PO SCH ×2 (09:48→21:38)
[2017-02-02] MEDS: amLODIPine BESYLATE 10 MG TABLET (FP) PO SCH (09:48)
[2017-02-02] MEDS: HYDROCORTISONE 1% TOPICAL CREAM 30 GM TUBE TP SCH ×4 (09:48→21:38)
[2017-02-02] MEDS: CYCLOBENZAPRINE HCL 10 MG TABLET (FP) PO PRN (21:37)
[2017-02-02] MEDS: diphenhydrAMINE HCL 50 MG CAPSULE PO PRN (21:37)
[2017-02-02] MEDS: THIAMINE HCL 100 MG TABLET (FP) PO SCH (21:37)
[2017-02-03] MEDS: diphenhydrAMINE HCL 25 MG CAPSULE (FP) PO PRN (06:16)
[2017-02-03] MEDS: IBUPROFEN 600 MG TABLET (FP) PO PRN ×3 (06:16→21:16)
[2017-02-03] MEDS: DOCUSATE SODIUM 100 MG CAPSULE (FP) PO SCH ×3 (06:16→21:16)
[2017-02-03] MEDS: FERROUS SO4 325 MG TABLET (FP) PO SCH ×2 (07:19→17:02)
[2017-02-03] MEDS: LISINOPRIL 10 MG TABLET (FP) PO SCH (10:08)
[2017-02-03] MEDS: RANITIDINE HCL 150 MG TABLET (FP) PO SCH ×2 (10:08→21:16)
[2017-02-03] MEDS: PRENATAL VITAMINS W/ FOLIC ACID TABLET (FP) PO SCH (10:08)
[2017-02-03] MEDS: amLODIPine BESYLATE 10 MG TABLET (FP) PO SCH (10:08)
[2017-02-03] MEDS: HYDROCORTISONE 1% TOPICAL CREAM 30 GM TUBE TP SCH ×4 (10:09→22:20)
--- NOTE | 2017-02-03 12:37 | PN ---
Psychiatric Progress Note Vital Signs: Vital Signs Period Temp Pulse Resp BP Sys/Tobar Pulse Ox Last 24 Hr 98 F 61-64 18-18 118-142/67-76 Date of Session: 02/03/17 Chief Complaint:: " My haldol injection is due on February 06." HPI: Case of a 61 Y/o AA female undergoing rehabilitation treatment for alcohol + cocaine dependence.Doing well.Uneventful hospital course.Concerned about not missing her next injection of haloperidol decanoate. ROS: Unremarkable. Current Medications: Active Medications Generic Name Dose Route Start Last Admin Trade Name Freq PRN Reason Stop Dose Admin Acetaminophen 650 mg 01/21/17 15:54 Tylenol - PO Q4H PRN PAIN Al Hydroxide/Mg Hydroxide 30 ml 01/21/17 15:54 Mylanta Oral Suspension - PO Q6H PRN DYSPEPSIA Albuterol Sulfate 2 puff 01/22/17 12:14 01/25/17 11:09 Ventolin Hfa Inhaler - IH 2 puff Q4H PRN Administration SHORT OF BREATH/WHEEZING Amlodipine Besylate 10 mg 01/22/17 10:00 02/03/17 10:08 Norvasc - PO 10 mg DAILY JUAN Administration Diphenhydramine HCl 50 mg 01/21/17 15:54 02/02/17 21:37 Benadryl - PO 50 mg HSMR1 PRN Administration INSOMNIA Diphenhydramine HCl 25 mg 01/23/17 15:54 02/03/17 06:16 Benadryl - PO 25 mg Q4H PRN Administration FOR ITCHING Docusate Sodium 100 mg 01/21/17 22:00 02/03/17 06:16 Colace - PO 100 mg TID JUAN Administration Eucalyptus/Menthol/Phenol/Sorbitol 1 each 01/21/17 15:54 Cepastat Lozenge - MM Q4H PRN SORE THROAT Ferrous Sulfate 325 mg 01/21/17 17:30 02/03/17 07:19 Feosol - PO 325 mg BIDWM JUAN Administration Guaifenesin 10 ml 01/21/17 15:54 Robitussin Dm - PO Q6H PRN COUGH Hydrocortisone 1 applic 01/23/17 18:00 02/03/17 10:09 Hytone 1% Cream - TP 1 applic QID JUAN Administration Hydroxyzine Pamoate 25 mg 08/15/17 16:03 01/31/17 06:31 Vistaril - PO 25 mg Q4H PRN Administration AGITATION Ibuprofen 600 mg 01/30/17 12:04 02/03/17 06:16 Motrin - PO 600 mg Q6H PRN Administration PAIN Lisinopril 10 mg 01/22/17 10:00 02/03/17 10:08 Prinivil PO 10 mg DAILY JUAN Administration Loperamide HCl 4 mg 01/21/17 15:54 Imodium - PO Q6H PRN DIARRHEA Magnesium Citrate 300 ml 01/21/17 15:54 Citroma - PO Q48H PRN CONSTIPATION Magnesium Hydroxide 30 ml 01/21/17 15:54 Milk Of Magnesia - PO DAILY PRN CONSTIPATION Multivit/Folic Acid/Iron 1 tab 01/22/17 10:00 02/03/17 10:08 Vitamins (Sjr) - PO 1 tab DAILY JUAN Administration Pseudoephedrine/Triprolidine 1 combo 01/21/17 15:54 Actifed - PO TID PRN NASAL CONGESTION Ranitidine HCl 150 mg 01/30/17 13:00 02/03/17 10:08 Zantac - PO 150 mg BID JUAN Administration Thiamine HCl 100 mg 01/21/17 22:00 02/02/17 21:37 Vitamin B1 - PO 100 mg HS JUAN Administration Medication(s) Change(s): No changes.Order is entered for haldol decanoate 100 mg IM to be dispensed on 02/05/17.Side effects/benefits discussed with the patient.Ms Arriaza is reminded or the risk for dystonias,dyskinesias,neuroleptic malignant syndrome and cardiovascular adverse events.She indicates a history of good tolerability and favorable response to haloperidol.Consents (verbally) to take the injection before her discharge from this program. Current Side Effect: No Lab tests ordered: No Lab tests reviewed: Yes Provider note:: Asked to renew order for haldol decanoate 100 mg IM.Chart reviewed.Dr Carmona 's note of 01/22/17 is appreciated.It confirmed patient's claim.Medication is further verified via review of pharmacy claims that show a script for haldol decanoate 100 mg dated 01/07/17 from [facility].Ms Arriaza is a good and reliable historian. Total face to face time:: 30 Mental Status Exam - Mental Status Exam Alert and Oriented to: Time, Place, Person Cognitive Function: Good Patient Appearance: Well Groomed (overweight) Mood: Hopeful, Euthymic Affect: Appropriate, Normal Range Patient Behavior: Appropriate, Cooperative Speech Pattern: Clear, Appropriate Voice Loudness: Normal Thought Process: Goal Oriented Thought Disorder: Not Present Hallucinations: Denies Suicidal Ideation: Denies Homicidal Ideation: Denies Insight/Judgement: Good Sleep: Well Appetite: Good Muscle strength/Tone: Normal Gait/Station: Normal Psychiatric Treatment Plan - Problem List (1) Paranoid schizophrenia Current Visit: Yes (2) Alcohol dependence Current Visit: Yes Qualifiers: Substance use status: unspecified alcohol-induced disorder Qualified Code(s): F10.29 - Alcohol dependence with unspecified alcohol-induced disorder (3) Cocaine dependence Current Visit: Yes Qualifiers: Substance use status: with unspecified cocaine-induced disorder Qualified Code(s): F14.29 - Cocaine dependence with unspecified cocaine-induced disorder (4) Nicotine dependence Current Visit: Yes (5) Arthritis Current Visit: Yes (6) Anemia Current Visit: Yes (7) Asthma Current Visit: Yes (8) Low back pain Current Visit: Yes
[2017-02-03] MEDS ORDERED: COLLOIDAL OATMEAL 1 BAR EACH TP PRN (13:39)
[2017-02-03] MEDS: CYCLOBENZAPRINE HCL 10 MG TABLET (FP) PO PRN (21:16)
[2017-02-03] MEDS: diphenhydrAMINE HCL 50 MG CAPSULE PO PRN (21:16)
[2017-02-03] MEDS: THIAMINE HCL 100 MG TABLET (FP) PO SCH (21:16)
[2017-02-04] MEDS: IBUPROFEN 600 MG TABLET (FP) PO PRN ×2 (05:53→21:18)
[2017-02-04] MEDS: CYCLOBENZAPRINE HCL 10 MG TABLET (FP) PO PRN ×2 (05:54→21:19)
[2017-02-04] MEDS: DOCUSATE SODIUM 100 MG CAPSULE (FP) PO SCH ×3 (05:54→21:20)
[2017-02-04] MEDS: diphenhydrAMINE HCL 25 MG CAPSULE (FP) PO PRN ×2 (05:54→17:02)
[2017-02-04] MEDS: FERROUS SO4 325 MG TABLET (FP) PO SCH ×2 (07:12→16:50)
[2017-02-04] MEDS: HYDROCORTISONE 1% TOPICAL CREAM 30 GM TUBE TP SCH ×4 (10:03→21:20)
[2017-02-04] MEDS: LISINOPRIL 10 MG TABLET (FP) PO SCH (10:03)
[2017-02-04] MEDS: amLODIPine BESYLATE 10 MG TABLET (FP) PO SCH (10:03)
[2017-02-04] MEDS: RANITIDINE HCL 150 MG TABLET (FP) PO SCH ×2 (10:03→21:19)
[2017-02-04] MEDS: PRENATAL VITAMINS W/ FOLIC ACID TABLET (FP) PO SCH (10:03)
[2017-02-04] MEDS: THIAMINE HCL 100 MG TABLET (FP) PO SCH (21:18)
[2017-02-04] MEDS: diphenhydrAMINE HCL 50 MG CAPSULE PO PRN (21:18)
[2017-02-05] MEDS: IBUPROFEN 600 MG TABLET (FP) PO PRN ×2 (06:03→16:51)
[2017-02-05] MEDS: CYCLOBENZAPRINE HCL 10 MG TABLET (FP) PO PRN ×2 (06:04→21:22)
[2017-02-05] MEDS: diphenhydrAMINE HCL 25 MG CAPSULE (FP) PO PRN ×2 (06:04→13:51)
[2017-02-05] MEDS: DOCUSATE SODIUM 100 MG CAPSULE (FP) PO SCH ×3 (06:04→21:23)
[2017-02-05] MEDS: FERROUS SO4 325 MG TABLET (FP) PO SCH ×2 (07:07→16:50)
[2017-02-05] MEDS ORDERED: HALOPERIDOL DECANOATE 100 MG/ML IM SCH (10:00)
[2017-02-05] MEDS: LISINOPRIL 10 MG TABLET (FP) PO SCH (10:05)
[2017-02-05] MEDS: HYDROCORTISONE 1% TOPICAL CREAM 30 GM TUBE TP SCH ×4 (10:05→21:22)
[2017-02-05] MEDS: PRENATAL VITAMINS W/ FOLIC ACID TABLET (FP) PO SCH (10:05)
[2017-02-05] MEDS: amLODIPine BESYLATE 10 MG TABLET (FP) PO SCH (10:05)
[2017-02-05] MEDS: RANITIDINE HCL 150 MG TABLET (FP) PO SCH ×2 (10:05→21:23)
[2017-02-05] MEDS: THIAMINE HCL 100 MG TABLET (FP) PO SCH (21:22)
[2017-02-05] MEDS: diphenhydrAMINE HCL 50 MG CAPSULE PO PRN (21:22)
[2017-02-06] MEDS: DOCUSATE SODIUM 100 MG CAPSULE (FP) PO SCH ×3 (06:23→21:14)
[2017-02-06] MEDS: CYCLOBENZAPRINE HCL 10 MG TABLET (FP) PO PRN ×2 (06:23→21:16)
[2017-02-06] MEDS: IBUPROFEN 600 MG TABLET (FP) PO PRN ×3 (06:23→21:16)
[2017-02-06] MEDS: diphenhydrAMINE HCL 25 MG CAPSULE (FP) PO PRN (06:23)
[2017-02-06] MEDS: FERROUS SO4 325 MG TABLET (FP) PO SCH ×2 (07:27→17:36)
[2017-02-06] MEDS ORDERED: PT OWN MED DRAWER 7, Y5N ONE (08:44)
[2017-02-06] MEDS: LISINOPRIL 10 MG TABLET (FP) PO SCH (10:13)
[2017-02-06] MEDS: PRENATAL VITAMINS W/ FOLIC ACID TABLET (FP) PO SCH (10:13)
[2017-02-06] MEDS: amLODIPine BESYLATE 10 MG TABLET (FP) PO SCH (10:14)
[2017-02-06] MEDS: HYDROCORTISONE 1% TOPICAL CREAM 30 GM TUBE TP SCH ×4 (10:14→21:14)
[2017-02-06] MEDS: RANITIDINE HCL 150 MG TABLET (FP) PO SCH ×2 (10:14→21:14)
--- NOTE | 2017-02-06 14:55 | PN ---
Psychiatric Progress Note Vital Signs: Vital Signs Period Temp Pulse Resp BP Sys/Tobar Pulse Ox Last 24 Hr 97.8 F 67-83 18-20 128-157/75-80 Date of Session: 02/06/17 Chief Complaint:: discharge visit HPI: Patient is addressing alcohol, cocaine, nicotine dependence comorbid schizophrenia paranoid. ROS: Asthma, HTN, GERD and Arthritis both knees & back, medically managed. Current Medications: Active Medications Generic Name Dose Route Start Last Admin Trade Name Freq PRN Reason Stop Dose Admin Acetaminophen 650 mg 01/21/17 15:54 Tylenol - PO Q4H PRN PAIN Al Hydroxide/Mg Hydroxide 30 ml 01/21/17 15:54 Mylanta Oral Suspension - PO Q6H PRN DYSPEPSIA Albuterol Sulfate 2 puff 01/22/17 12:14 01/25/17 11:09 Ventolin Hfa Inhaler - IH 2 puff Q4H PRN Administration SHORT OF BREATH/WHEEZING Amlodipine Besylate 10 mg 01/22/17 10:00 02/06/17 10:14 Norvasc - PO 10 mg DAILY JUAN Administration Colloidal Oatmeal 1 applic 02/03/17 13:39 Aveeno Soap - TP DAILY PRN HYGEINE Cyclobenzaprine HCl 10 mg 02/03/17 14:37 02/06/17 06:23 Flexeril - PO 10 mg TID PRN Administration MUSCLE SPASMS Diphenhydramine HCl 50 mg 01/21/17 15:54 02/05/17 21:22 Benadryl - PO 50 mg HSMR1 PRN Administration INSOMNIA Diphenhydramine HCl 25 mg 01/23/17 15:54 02/06/17 06:23 Benadryl - PO 25 mg Q4H PRN Administration FOR ITCHING Docusate Sodium 100 mg 01/21/17 22:00 02/06/17 13:17 Colace - PO 100 mg TID JUAN Administration Eucalyptus/Menthol/Phenol/Sorbitol 1 each 01/21/17 15:54 Cepastat Lozenge - MM Q4H PRN SORE THROAT Ferrous Sulfate 325 mg 01/21/17 17:30 02/06/17 07:27 Feosol - PO 325 mg BIDWM JUAN Administration Guaifenesin 10 ml 01/21/17 15:54 Robitussin Dm - PO Q6H PRN COUGH Haloperidol Decanoate 100 mg 02/05/17 10:00 02/05/17 11:47 Haldol Decanoate (Long-Acting) - IM 100 mg Q28D@1000 JUAN Administration Hydrocortisone 1 applic 01/23/17 18:00 02/06/17 10:14 Hytone 1% Cream - TP 1 applic QID JUAN Administration Hydroxyzine Pamoate 25 mg 01/21/17 16:03 01/31/17 06:31 Vistaril - PO 25 mg Q4H PRN Administration AGITATION Ibuprofen 600 mg 01/30/17 12:04 02/06/17 13:17 Motrin - PO 600 mg Q6H PRN Administration PAIN Lisinopril 10 mg 01/22/17 10:00 02/06/17 10:13 Prinivil PO 10 mg DAILY JUAN Administration Loperamide HCl 4 mg 01/21/17 15:54 Imodium - PO Q6H PRN DIARRHEA Magnesium Citrate 300 ml 01/21/17 15:54 Citroma - PO Q48H PRN CONSTIPATION Magnesium Hydroxide 30 ml 01/21/17 15:54 Milk Of Magnesia - PO DAILY PRN CONSTIPATION Multivit/Folic Acid/Iron 1 tab 01/22/17 10:00 02/06/17 10:13 Vitamins (Sjr) - PO 1 tab DAILY JUAN Administration Pseudoephedrine/Triprolidine 1 combo 01/21/17 15:54 Actifed - PO TID PRN NASAL CONGESTION Ranitidine HCl 150 mg 01/30/17 13:00 02/06/17 10:14 Zantac - PO 150 mg BID JUAN Administration Thiamine HCl 100 mg 01/21/17 22:00 02/05/17 21:22 Vitamin B1 - PO 100 mg HS JUAN Administration Current Side Effect: No Lab tests ordered: No Lab tests reviewed: Yes Provider note:: Patient will completed her treatment and meet her identified goals on 02/07/17, will continue to address her issues at [facility]. Patient gained insights into her problems and motivated to continue maintain abstinence. She focuses on importance of changning attitude, behavior for the utilization of supports to perevent relapses and improving coping skills. Patient reports feeling better, she had her Haldol Decanoate 100 mg IM injection on 02/05, next due in 4 weeks. Supportive therapy privided, patient is stable for discharge tomorrow. Patient will f/u by [facility]. Total face to face time:: 15 Mental Status Exam - Mental Status Exam Alert and Oriented to: Time, Place, Person Cognitive Function: Fair Patient Appearance: Well Groomed Mood: Hopeful Affect: Appropriate, Mood Congruent Patient Behavior: Appropriate, Cooperative Speech Pattern: Clear, Appropriate Voice Loudness: Normal Thought Process: Intact Thought Disorder: Not Present Hallucinations: None, Denies Suicidal Ideation: None, Denies Homicidal Ideation: Denies Insight/Judgement: Fair Sleep: Well Appetite: Good Muscle strength/Tone: Normal Gait/Station: Normal Psychiatric Treatment Plan - Problem List (1) Nicotine dependence Current Visit: Yes (2) Schizoaffective disorder Current Visit: Yes (3) Alcohol dependence Current Visit: Yes Qualifiers: Substance use status: unspecified alcohol-induced disorder Qualified Code(s): F10.29 - Alcohol dependence with unspecified alcohol-induced disorder (4) Cocaine dependence Current Visit: Yes Qualifiers: Substance use status: with unspecified cocaine-induced disorder Qualified Code(s): F14.29 - Cocaine dependence with unspecified cocaine-induced disorder
[2017-02-06] MEDS: THIAMINE HCL 100 MG TABLET (FP) PO SCH (21:14)
[2017-02-06] MEDS: diphenhydrAMINE HCL 50 MG CAPSULE PO PRN (21:17)
[2017-02-07] MEDS: IBUPROFEN 600 MG TABLET (FP) PO PRN (06:14)
[2017-02-07] MEDS: DOCUSATE SODIUM 100 MG CAPSULE (FP) PO SCH (06:14)
[2017-02-07] MEDS: diphenhydrAMINE HCL 25 MG CAPSULE (FP) PO PRN (06:14)
[2017-02-07] MEDS: CYCLOBENZAPRINE HCL 10 MG TABLET (FP) PO PRN (06:15)
[2017-02-07] MEDS: FERROUS SO4 325 MG TABLET (FP) PO SCH (07:03)
[2017-02-07 07:04] VITALS: BP 164/84; PULSE 75; TEMP 98.4
[2017-02-07] MEDS ORDERED: PT OWN MED DRAWER 7, Y5N ONE ×2 (08:48→09:49)
[2017-02-07] MEDS: PRENATAL VITAMINS W/ FOLIC ACID TABLET (FP) PO SCH (09:45)
[2017-02-07] MEDS: amLODIPine BESYLATE 10 MG TABLET (FP) PO SCH (09:45)
[2017-02-07] MEDS: RANITIDINE HCL 150 MG TABLET (FP) PO SCH (09:45)
[2017-02-07] MEDS: LISINOPRIL 10 MG TABLET (FP) PO SCH (09:45)
[2017-02-07] MEDS: HYDROCORTISONE 1% TOPICAL CREAM 30 GM TUBE TP SCH (09:46)
== END 2017-02-07 09:50 | disposition home or self-care (01) | DRG 772 ==
LOC: YASAS 12:15 → Y3W 16:01
PROVIDERS: ADMIT Psychiatry & Neurology Psychiatry; ATTEND Psychiatry & Neurology Psychiatry
PROC: HZ42ZZZ Group Counseling for Substance Abuse Treatment, Cognitive-Behavioral (ICD-10-PCS; principal; 2017-02-07)
DX: F10.29 Alcohol dependence with unspecified alcohol-induced disorder (principal); F14.29 Cocaine dependence with unspecified cocaine-induced disorder; F17.210 Nicotine dependence, cigarettes, uncomplicated; F25.9 Schizoaffective disorder, unspecified; R60.0 Localized edema; D64.9 Anemia, unspecified; I10 Essential (primary) hypertension; J45.909 Unspecified asthma, uncomplicated; M54.5 Low back pain
CPT/HCPCS: 36415; 80053; 81003; 85027; 86593; 87389; 93005; 93010

== ENCOUNTER 2017-10-18 07:07 | Emergency (ER) | payer OTHER ==
[2017-10-18 07:21] VITALS: BMI 35.9
--- NOTE | 2017-10-18 07:38 | PDOC ---
History of Present Illness - General Chief Complaint: Pain Stated Complaint: LEG SWELLING, PAIN Time Seen by Provider: 10/18/17 07:38 - History of Present Illness Initial Comments: 10/18/17 07:39 Ms. Arriaza is a 62 yo female w/ pmh of HTN, chronic back pain, cocaine and alcohol abuse who presents complaining of several days of bilateral lower extremity swelling and pain in all four of her extremities. She reports she went to [facility] twice yesterday for evaluation of this same problem. She has previously been evaluated in this ER as well for this problem. She also reports midline epigastric pain over this same time period. The patient denies chest pain, shortness of breath, headache and dizziness. Denies fever, chills, nausea, vomit, diarrhea and constipation. Denies dysuria, frequency, urgency and hematuria. Allergies: NKDA Past History - Past Medical History Allergies/Adverse Reactions: Allergies Allergy/AdvReac Type Severity Reaction Status Date / Time tomato Allergy Severe Hives Verified 10/18/17 07:12 No Known Drug Allergies Allergy Verified 10/18/17 07:12 Home Medications: Ambulatory Orders Zolpidem Tartrate [Ambien] 10 mg PO HS 06/21/16 Amlodipine Besylate [Norvasc -] 10 mg PO DAILY #30 tab 02/07/17 Docusate Sodium [Colace -] 100 mg PO TID #90 capsule 02/07/17 Ferrous Sulfate 325 mg PO BID #60 tablet 02/07/17 Lisinopril 10 mg PO DAILY #30 tab 02/07/17 Anemia: Yes Asthma: Yes (ON MDI) Cancer: No Cardiac Disorders: Yes CVA: No COPD: No CHF: No Dementia: No Diabetes: No GI Disorders: Yes (gerd) Disorders: No HTN: Yes (ON MEDS.) Hypercholesterolemia: No Kidney Stones: No Liver Disease: No Seizures: No Thyroid Disease: No - Surgical History Abdominal Surgery: No Appendectomy: No Cardiac Surgery: No Cholecystectomy: No Lung Surgery: No Neurologic Surgery: No Orthopedic Surgery: No - Reproductive History PID: No - Immunization History Immunization Up to Date: No - Suicide/Smoking/Psychosocial Hx Smoking History: Current every day smoker Have you smoked in the past 12 months: Yes Number of Cigarettes Smoked Daily: 5 Cigars Per Day: 5 Information on smoking cessation initiated: Yes 'Breaking Loose' booklet given: 10/18/17 Hx Alcohol Use: Yes (hx of) Drug/Substance Use Hx: Yes (hx of) Substance Use Type: Alcohol, Cocaine Hx Substance Use Treatment: Yes (Multiple previous inpt rehab @ [facility]) Review of Systems - Review of Systems Comments:: 10/18/17 07:39 GENERAL/CONSTITUTIONAL: No fever or chills. No weakness. HEAD, EYES, EARS, NOSE AND THROAT: No change in vision. No ear pain or discharge. No sore throat. CARDIOVASCULAR: No chest pain or shortness of breath RESPIRATORY: No cough, wheezing, or hemoptysis. GASTROINTESTINAL: +Midline abdominal pain. No nausea, vomiting, diarrhea or constipation. GENITOURINARY: No dysuria, frequency, or change in urination. MUSCULOSKELETAL: +Extremity pain/swelling as described. SKIN: No rash NEUROLOGIC: No headache, vertigo, loss of consciousness, or change in strength/ sensation. ENDOCRINE: No increased thirst. No abnormal weight change HEMATOLOGIC/LYMPHATIC: No anemia, easy bleeding, or history of blood clots. ALLERGIC/IMMUNOLOGIC: No hives or skin allergy. *Physical Exam - Vital Signs Last Vital Signs Temp Pulse Resp BP Pulse Ox 98.5 F 40 L 18 126/88 100 10/18/17 07:12 10/18/17 07:12 10/18/17 07:12 10/18/17 07:12 10/18/17 07:12 - Physical Exam Comments: 10/18/17 07:39 GENERAL: Awake, alert, and fully oriented, in no acute distress HEAD: No signs of trauma, normocephalic, atraumatic EYES: PERRLA, EOMI, sclera anicteric, conjunctiva clear ENT: Auricles normal inspection, hearing grossly normal, nares patent, oropharynx clear without exudates. Moist mucosa NECK: Normal ROM, supple, no lymphadenopathy, JVD, or masses LUNGS: No distress, speaks full sentences, clear to auscultation bilaterally HEART: Regular rate and rhythm, normal S1 and S2, no murmurs, rubs or gallops, peripheral pulses normal and equal bilaterally. ABDOMEN: Soft, nontender, normoactive bowel sounds. No guarding, no rebound. No masses EXTREMITIES: Normal inspection, Normal range of motion, no edema. No clubbing or cyanosis. NEUROLOGICAL: Cranial nerves II through XII grossly intact. Normal speech, normal gait, no focal sensorimotor deficits SKIN: Warm, Dry, normal turgor, no rashes or lesions noted. Medical Decision Making - Medical Decision Making 10/18/17 08:07 Ms. Arriaza is a 62 yo female w/ pmh as described who presents for evaluation of chronic pain. 10/18/17 09:40 Toradol 15mg given for symptomatic relief. No concern for acute process at this time. Patient instructed to f/u with PCP for further evaluation. *DC/Admit/Observation/Transfer Diagnosis at time of Disposition: Extremity pain Qualifiers: Extremity pain location: unspecified extremity Qualified Code(s): M79.609 - Pain in unspecified limb - Discharge Dispostion Disposition: HOME - Referrals - Patient Instructions Printed Discharge Instructions: DI for Leg Pain Additional Instructions: Follow-up with Dr. Carmona within 2-3 days. Return to the emergency department if you have any new, worsening or concerning symptoms. - Post Discharge Activity
[2017-10-18] MEDS ORDERED: KETOROLAC TROMETHAMINE 15 MG/ML VIAL IM ONE (08:24)
--- NOTE | 2017-10-18 09:17 | PDOC ---
Attending Attestation - Resident Resident Name: Mehran Castillo - ED Attending Attestation I have performed the following: I have examined & evaluated the patient, The case was reviewed & discussed with the resident, I agree w/resident's findings & plan, Exceptions are as noted - HPI HPI: 10/18/17 10:57 The patient is a 62 year old female with past medical history of hypertension, chronic back pain, and cocaine/alcohol abuse who presents to the ED with complaints of bilateral leg swelling and extremity pain for the past year. She denies any associated numbness or tingling. She denies any falls or trauma. She reports she went to [facility] two times yesterday for the same complaints as well as multiple visits to this ED. The patient has had ultrasounds performed in the past which have been reportedly negative for DVT. The patient denies any fevers, chills, CP/SOB, rash, nausea, vomiting, diarrhea, cough, SOB , or urinary symptoms. - Physicial Exam PE: 10/18/17 10:59 GENERAL: Awake, alert, and fully oriented, in no acute distress HEAD: No signs of trauma EYES: PERRLA, EOMI, sclera anicteric, conjunctiva clear ENT: Auricles normal inspection, hearing grossly normal, nares patent, oropharynx clear without exudates. Moist mucosa. Adentulous. NECK: Normal ROM, supple, no lymphadenopathy, JVD, or masses LUNGS: Breath sounds equal, clear to auscultation bilaterally. No wheezes, and no crackles HEART: Regular rate and rhythm, normal S1 and S2, no murmurs, rubs or gallops ABDOMEN: Soft, nontender, normoactive bowel sounds. No guarding, no rebound. No masses EXTREMITIES: Normal range of motion, trace LE symmetric non pitting edema. No clubbing or cyanosis. No cords, erythema, or tenderness. WWP, 2+ peripheral pulses x4. NEUROLOGICAL: Normal speech, cranial nerves intact, negative pronator drift, 5/ 5 strength in all 4 extremities, normal sensation to light touch in all 4 extremities, normal cerebellar exam, normal gait, normal reflexes and tone SKIN: Warm, Dry, normal turgor, no rashes or lesions noted. - Medical Decision Making 10/18/17 09:10 62-year-old female presents emergency Department with one year of bilateral lower extremity pain. Vitals remarkable for heart rate of 40, on my evaluation on the monitor, HR is 68. BP normal throughout. Pt sleeping comfortably in the ED. LE with trace LE non pitting edema, no deformities, warm, well perfused. 2+ DP pulses. No ttp. LE NVI. Pt ambulating in the ED with steady gait. Will DC pt to f/u with PMD. Pt requesting a meal and to sleep for 15 mins, pt given meal and allowed to rest until bed was needed. I discussed the physical exam findings, ancillary test results and final diagnoses with the patient. I answered all of the patient's questions. The patient was satisfied with the care received and felt comfortable with the discharge plan and treatment plan. The patient will call their primary care physician within 24 hours to arrange follow-up and will return to the Emergency Department with any new, persistent or worsening symptoms.
[2017-10-18] MEDS ORDERED: KETOROLAC TROMETHAMINE 15 MG/ML VIAL ONE (09:21)
[2017-10-18 10:09] VITALS: BP 157/58; PULSE 64; TEMP 98.1
--- NOTE | 2017-10-19 21:45 | EKG ---
Test Reason : Blood Pressure : / mmHG Vent. Rate : 063 BPM Atrial Rate : 063 BPM P-R Int : 134 ms QRS Dur : 086 ms QT Int : 474 ms P-R-T Axes : 055 005 014 degrees QTc Int : 485 ms SINUS RHYTHM WITH PREMATURE SUPRAVENTRICULAR COMPLEXES NONSPECIFIC ST ABNORMALITY PROLONGED QT ABNORMAL ECG WHEN COMPARED WITH ECG OF 21-JAN-2017 20:07, PREMATURE SUPRAVENTRICULAR COMPLEXES ARE NOW PRESENT NONSPECIFIC T WAVE ABNORMALITY NOW EVIDENT IN INFERIOR LEADS Confirmed by LESLEY TENORIO MD ([id number]) on 10/19/2017 9:45:08 PM Referred By: Confirmed By:LESLEY TENORIO MD
== END 2017-10-18 10:09 | disposition home or self-care (01) ==
LOC: JER 07:07
PROC: 3E0233Z Introduction of Anti-inflammatory into Muscle, Percutaneous Approach (ICD-10-PCS; principal; 2017-10-18)
DX: R60.0 Localized edema (principal); I10 Essential (primary) hypertension; M54.89 Other dorsalgia; F10.10 Alcohol abuse, uncomplicated; F14.10 Cocaine abuse, uncomplicated; J45.909 Unspecified asthma, uncomplicated; F17.210 Nicotine dependence, cigarettes, uncomplicated
CPT/HCPCS: 93005; 93010; 96372; 99284-25

== ENCOUNTER 2017-10-25 13:38 | Emergency (ER) | payer OTHER ==
[2017-10-25 13:54] VITALS: TEMP 97.6; BMI 33.9
[2017-10-25] MEDS ORDERED: ONDANSETRON 4 MG/2 ML VIAL IVPUSH ONE (14:13)
[2017-10-25] MEDS ORDERED: SODIUM CHLORIDE 1,000 ML IV STA (14:13)
--- NOTE | 2017-10-25 14:27 | PDOC ---
Attending Attestation - Resident Resident Name: David Livingston - ED Attending Attestation I have performed the following: I have examined & evaluated the patient, The case was reviewed & discussed with the resident, I agree w/resident's findings & plan, Exceptions are as noted - HPI HPI: 10/25/17 14:26 62y F hx of polysubstance abuse (cocaine, etoh), gerd, htn, schizophrenia presents with 2 days of upper abdominal pain associated with episodes of non bloody diarrhea since this morning, endorses subjectifevers. also endorses some nausea/vomiting. pt denies any cp, sob, calabrese, dysuria. EXAM: General: well appearing, no acute distress HEAD: traumatic PULM: CTA, no wheezing/rales HEART: RRR, no M/R/G ABD: mild epigastric tenderness that is distractible, no rebound/guarding EXT: No edema moving b/l extremities spontaneously and symmetrically suspec tpossible enteritis vs colitis will ck labs, ua, will reassess - Physicial Exam PE: 10/25/17 19:49 see above - Medical Decision Making 10/25/17 17:48 labs reviwed pt feeling improved, tolerated a sandwich and juice here abd soft nontender, no rebound, guarding will dc the pt with pm dfu return precautions were discussed Heart Score/ECG Review - ECG Impressions Comment:: 10/25/17 19:50 EKG performed 10/25/2017, 14:28 Rate of 67 regular rate/rhythm occasional PAC abnormal R wave progression no ST change suggsetive of acute ischemia
[2017-10-25] MEDS ORDERED: FAMOTIDINE 20 MG/50 ML IVPB 20 MG/50 ML MG IVPB ONE ×2 (14:30→14:56)
[2017-10-25] MEDS ORDERED: ONDANSETRON 4 MG/2 ML VIAL ONE (14:39)
[2017-10-25 14:55] LABS: BASO % 0.9 % (0-2.0); HEMATOCRIT 32.4 % (32.4-45.2); HEMOGLOBIN 10.7 GM/dL (10.7-15.3); LYMPH % 30.1 % (8-40); MCH 29.8 pg (25.7-33.7); MCHC 32.8 g/dl (32.0-36.0); MEAN CELL VOLUME 90.8 fl (80-96); MEAN PLT VOLUME 9.6 fl (7.5-11.1); MONO % 11.6 % (3.8-10.2); NEUT % 53.4 % (42.8-82.8); PLATELET COUNT 169 K/MM3 (134-434); RBC 3.57 M/mm3 (3.60-5.2); RDW 14.9 % (11.6-15.6); WHITE BLOOD COUNT 4.9 K/mm3 (4.0-10.0)
[2017-10-25 15:19] LABS: ALBUMIN 3.3 g/dl (3.4-5.0); ANION GAP 4 (8-16); BILIRUBIN,TOTAL 0.7 mg/dL (0.2-1.0); BLOOD UREA NITROGEN 17 mg/dL (7-18); CALCIUM 7.8 mg/dL (8.5-10.1); CHLORIDE 109 mmol/L (98-107); CO2 28 mmol/L (21-32); CREATININE 1.2 mg/dL (0.55-1.02); GLUCOSE,RANDOM 127 mg/dL (74-106); LIPASE 45 U/L (73-393); POTASSIUM 3.8 mmol/L (3.5-5.1); SGOT/AST 49 U/L (15-37); SGPT/ALT 50 U/L (12-78); SODIUM 141 mmol/L (136-145); TOT PROT 6.2 g/dl (6.4-8.2)
[2017-10-25 15:27] LABS: SALICYLATE <4.0 mg/dL
[2017-10-25 15:31] LABS: ALK PHOS 59 U/L (45-117)
--- NOTE | 2017-10-25 15:58 | PDOC ---
History of Present Illness - General Chief Complaint: Pain Stated Complaint: ABDOMINAL PAIN Time Seen by Provider: 10/25/17 14:01 History Source: Patient Exam Limitations: No Limitations - History of Present Illness Initial Comments: 10/25/17 15:52 Patient is a 62F with history of cocaine abuse, alcohol abuse, GERD, HTN, and schizophrenia here today complaining of abdominal pain for the past two days. She endorses associated diarrhea, fevers, and chills. Last bowel movement today. Denies history of abdominal surgery. Denies pain with urination. She is complaining of lower back pain which is chronic in nature. Past History - Past Medical History Allergies/Adverse Reactions: Allergies Allergy/AdvReac Type Severity Reaction Status Date / Time tomato Allergy Severe Hives Verified 10/18/17 07:12 No Known Drug Allergies Allergy Verified 10/18/17 07:12 Home Medications: Ambulatory Orders Zolpidem Tartrate [Ambien] 10 mg PO HS 06/21/16 Amlodipine Besylate [Norvasc -] 10 mg PO DAILY #30 tab 02/07/17 Docusate Sodium [Colace -] 100 mg PO TID #90 capsule 02/07/17 Ferrous Sulfate 325 mg PO BID #60 tablet 02/07/17 Lisinopril 10 mg PO DAILY #30 tab 02/07/17 Anemia: Yes Asthma: Yes (ON MDI) Cancer: No Cardiac Disorders: Yes CVA: No COPD: No CHF: No Dementia: No Diabetes: No GI Disorders: Yes (gerd) Disorders: No HTN: Yes (ON MEDS.) Hypercholesterolemia: No Kidney Stones: No Liver Disease: No Seizures: No Thyroid Disease: No - Surgical History Abdominal Surgery: No Appendectomy: No Cardiac Surgery: No Cholecystectomy: No Lung Surgery: No Neurologic Surgery: No Orthopedic Surgery: No - Reproductive History PID: No - Immunization History Immunization Up to Date: No - Suicide/Smoking/Psychosocial Hx Smoking History: Current every day smoker Have you smoked in the past 12 months: Yes Number of Cigarettes Smoked Daily: 2 Cigars Per Day: 5 Information on smoking cessation initiated: No 'Breaking Loose' booklet given: 10/18/17 Hx Alcohol Use: No Drug/Substance Use Hx: No Substance Use Type: Alcohol, Cocaine Hx Substance Use Treatment: Yes (Multiple previous inpt rehab @ [facility]) Review of Systems - Review of Systems Comments:: 10/25/17 15:59 GENERAL/CONSTITUTIONAL: No fever or chills. No weakness. HEAD, EYES, EARS, NOSE AND THROAT: No change in vision. No sore throat. CARDIOVASCULAR: No chest pain or shortness of breath RESPIRATORY: No cough, wheezing, or hemoptysis. GASTROINTESTINAL: No nausea, vomiting. Positive for diarrhea. Negative for constipation. GENITOURINARY: No dysuria, frequency, or change in urination. MUSCULOSKELETAL: No joint or muscle swelling or pain. Positive for lower back pain. SKIN: No rash NEUROLOGIC: No headache, vertigo, loss of consciousness, or change in strength/ sensation. HEMATOLOGIC/LYMPHATIC: No anemia, easy bleeding, or history of blood clots. ALLERGIC/IMMUNOLOGIC: No hives or skin allergy. *Physical Exam - Vital Signs Last Vital Signs Temp Pulse Resp BP Pulse Ox 97.6 F 56 L 20 129/60 96 10/25/17 13:50 10/25/17 13:50 10/25/17 13:50 10/25/17 13:50 10/25/17 13:50 - Physical Exam Comments: 10/25/17 16:00 GENERAL: Awake, alert, and fully oriented, drowsy HEAD: No signs of trauma, normocephalic, atraumatic EYES: PERRLA, miotic pupils, EOMI, sclera anicteric, conjunctiva clear ENT: Auricles normal inspection, hearing grossly normal, nares patent, oropharynx clear without exudates. Moist mucosa NECK: Normal ROM, supple, no lymphadenopathy, JVD, or masses LUNGS: No distress, speaks full sentences, clear to auscultation bilaterally HEART: Regular rate and rhythm, normal S1 and S2, no murmurs, rubs or gallops, peripheral pulses normal and equal bilaterally. ABDOMEN: Distractable epigastric tenderness normoactive bowel sounds. No guarding, no rebound. No masses EXTREMITIES: Normal inspection, Normal range of motion, no edema. No clubbing or cyanosis. NEUROLOGICAL: Cranial nerves II through XII grossly intact. Normal speech, no focal sensorimotor deficits SKIN: Warm, Dry, normal turgor, no rashes or lesions noted. ED Treatment Course - LABORATORY CBC & Chemistry Diagram: 10/25/17 14:45 10/25/17 14:45 - ADDITIONAL ORDERS Additional order review: Laboratory Results 10/25/17 10/25/17 14:45 14:45 Sodium 141 Potassium 3.8 Chloride 109 H Carbon Dioxide 28 Anion Gap 4 L BUN 17 Creatinine 1.2 H Creat Clearance w eGFR 45.83 Random Glucose 127 H Calcium 7.8 L Total Bilirubin 0.7 D AST 49 H ALT 50 Alkaline Phosphatase 59 Creatine Kinase 1003 H Creatine Kinase Index 1.2 CK-MB (CK-2) 12.485 H Troponin I < 0.02 Total Protein 6.2 L Albumin 3.3 L Lipase 45 L Salicylates <4.0 Alcohol, Quantitative < 5.0 10/25/17 14:45 RBC 3.57 L MCV 90.8 MCHC 32.8 RDW 14.9 MPV 9.6 Neutrophils % 53.4 Lymphocytes % 30.1 D Monocytes % 11.6 H Eosinophils % 4.0 Basophils % 0.9 - RADIOLOGY Radiology Studies Ordered: Category Date Time Status CHEST X-RAY PORTABLE* [RAD] Stat Radiology 10/25/17 14:14 Completed - Medications Given in the ED: ED Medications Discontinued Medications Generic Name Dose Route Start Last Admin Trade Name Freq PRN Reason Stop Dose Admin Famotidine/Sodium Chloride 20 mg in 50 mls @ 100 mls/hr 10/25/17 14:30 14:58 Pepcid 20 Mg Premixed Ivpb - IVPB 10/25/17 14:59 100 mls/hr ONCE ONE Administration Sodium Chloride 1,000 mls @ 1,000 mls/hr 10/25/17 14:13 10/25/17 14:40 Normal Saline - IV 10/25/17 15:12 1,000 mls/hr ASDIR STA Administration Ondansetron HCl 4 mg 10/25/17 14:13 10/25/17 14:40 Zofran Injection IVPUSH 10/25/17 14:14 4 mg ONCE ONE Administration Medical Decision Making - Medical Decision Making 10/25/17 16:01 Patient is 62F with history of schizophrenia, HTN, GERD and chronic back pain here today with epigastric abdominal pain. Vital signs stable and normal. During my exam, patient repeatedly dozing off, but always arousable satting 100% . Awake and interactive with nursing staff. Abdominal exam was extremely distractable. Patient not complaining of chest pain. However, due to patient's baseline mental illness will start with broad workup. Believe patient most likely has gastritis, but also considering other etiology such as ACS, cholecystits, pancreatitis. 10/25/17 16:14 Laboratory Tests 10/25/17 10/25/17 10/25/17 14:45 14:45 14:45 WBC 4.9 Hgb 10.7 Plt Count 169 D BUN 17 Creatinine 1.2 H Creatine Kinase 1003 H Salicylates <4.0 Alcohol, Quantitative < 5.0 CBC normal. CMP shows slightly elevated Cr, at baseline. CK elevated to 1003. Troponin undetectable. Patient currently refusing to give urine sample. 10/25/17 17:26 Patient now easily arousable, asking to go to bathroom. Tech assisting to bathroom. 10/25/17 17:41 Pain resolved, patient tolerating PO, UA collected. 10/25/17 17:58 UA clear, Utox positive for cocaine and marijuana. Patient denies having any chest pain at any moment. Asking to go home. *DC/Admit/Observation/Transfer Diagnosis at time of Disposition: Abdominal pain - Discharge Dispostion Disposition: HOME Condition at time of disposition: Good Decision to Admit order: No - Referrals Referrals: Sarath Carmona [Primary Care Provider] - [facility] [Provider Group] - Patient Instructions Printed Discharge Instructions: DI for Abdominal Pain-Adult Additional Instructions: Please return if you have any new, worsening or concerning symptoms. Please follow up with your primary care physician in the next week. A referral for a PCP has been provided if you do not have one. - Post Discharge Activity
[2017-10-25 17:47] LABS: URINE APPEARANCE CLEAR; URINE BILIRUBIN NEGATIVE (<2.0 mg/dL); URINE COLOR DKYELLOW; URINE GLUCOSE (UA) NEGATIVE (NEGATIVE); URINE KETONE TRACE (NEGATIVE); URINE LEUK ESTERASE NEGATIVE (NEGATIVE); URINE NITRITE NEGATIVE (NEGATIVE); URINE PROTEIN NEGATIVE (NEGATIVE); URINE UROBILINOGEN 4.0 E.U/dl mg/dL (0.2-1.0)
[2017-10-25 17:57] LABS: METHADONE, UR NEGATIVE ng/ml (CUTOFF=300); OPIATES, URI NEGATIVE ng/ml (CUTOFF=300); PHENCYCLIDINE,URINE NEGATIVE ng/ml (CUTOFF=25); URINE AMPHETAMINES NEGATIVE ng/ml (CUTOFF=500); URINE BARBITURATES NEGATIVE ng/ml (CUTOFF=200); URINE BENZODIAZEPINES NEGATIVE ng/ml (CUTOFF=200)
[2017-10-25 17:58] LABS: COCAINE, UR POSITIVE ng/ml (CUTOFF=300)
[2017-10-25 18:18] VITALS: BP 120/90; PULSE 71
--- NOTE | 2017-10-28 00:30 | EKG ---
Test Reason : Blood Pressure : / mmHG Vent. Rate : 067 BPM Atrial Rate : 067 BPM P-R Int : 132 ms QRS Dur : 082 ms QT Int : 412 ms P-R-T Axes : 050 -15 -07 degrees QTc Int : 435 ms SINUS RHYTHM WITH PREMATURE ATRIAL COMPLEXES POSSIBLE LEFT ATRIAL ENLARGEMENT POSSIBLE ANTERIOR INFARCT , AGE UNDETERMINED ABNORMAL ECG WHEN COMPARED WITH ECG OF 18-OCT-2017 07:44, NO SIGNIFICANT CHANGE WAS FOUND Confirmed by KELSEA PRUITT, KARLOS ([id number]) on 10/28/2017 12:30:13 AM Referred By: Confirmed By:KARLOS ENAMORADO MD
--- NOTE | 2017-10-29 16:31 | EKG ---
Test Reason : Blood Pressure : / mmHG Vent. Rate : 073 BPM Atrial Rate : 073 BPM P-R Int : 136 ms QRS Dur : 084 ms QT Int : 416 ms P-R-T Axes : 059 -17 -01 degrees QTc Int : 458 ms SINUS RHYTHM WITH PREMATURE ATRIAL COMPLEXES WITH ABERRANT CONDUCTION POSSIBLE ANTERIOR INFARCT (CITED ON OR BEFORE 25-OCT-2017) ABNORMAL ECG WHEN COMPARED WITH ECG OF 25-OCT-2017 14:28, NO SIGNIFICANT CHANGE WAS FOUND Confirmed by LESLEY TENORIO MD ([id number]) on 10/29/2017 4:31:06 PM Referred By: Confirmed By:LESLEY TENORIO MD
== END 2017-10-25 18:23 | disposition home or self-care (01) ==
LOC: JER 13:38
PROC: 3E033GC Introduction of Other Therapeutic Substance into Peripheral Vein, Percutaneous Approach (ICD-10-PCS; principal; 2017-10-25)
PROC: 3E033GC Introduction of Other Therapeutic Substance into Peripheral Vein, Percutaneous Approach (ICD-10-PCS; 2017-10-25)
DX: K29.70 Gastritis, unspecified, without bleeding (principal); I10 Essential (primary) hypertension; J45.909 Unspecified asthma, uncomplicated; K21.9 Gastro-esophageal reflux disease without esophagitis; F20.9 Schizophrenia, unspecified; F14.10 Cocaine abuse, uncomplicated; F10.10 Alcohol abuse, uncomplicated; Z59.0 Homelessness
CPT/HCPCS: 36415; 71045-TC-FY; 80053; 80307; 81003; 82550; 82553; 83690; 84484; 85025; 93005; 93010; 96365; 96375; 99282-25; J7030

== ENCOUNTER 2017-11-04 05:31 | Inpatient (IN) | payer OTHER ==
[2017-11-04 05:46] VITALS: BMI 32.5
--- NOTE | 2017-11-04 05:47 | PDOC ---
History of Present Illness - General Chief Complaint: Altered Mental Status Stated Complaint: AMS Time Seen by Provider: 11/04/17 05:38 - History of Present Illness Initial Comments: 11/04/17 05:50 The patient is a 62 year old female with a history of HTN, HLD, GERD, Paranoid Schizophrenia who presents for evaluation of palpitations. The patient was found by EMS outside of her house stating that she was 7 weeks and experiencing a sensation of a racing heart. On exam here in the ED, the patient is stating that she feels her palpitations are "a sign from God that she should just let go and the world would be better off without her." She states that she has been stressed lately with finding housing and being 7 weeks . She currently denies thoughts of harming herself, but notes that she feels like she "just wants everything to end" and "wants to just give up." The patient has been on haldol in the past but is not currently taking any psychiatric medications. She otherwise denies fevers, chills, SOB, chest pain, nausea, vomiting, abdominal pain, or changes with urination or bowel movements. Past History - Past Medical History Allergies/Adverse Reactions: Allergies Allergy/AdvReac Type Severity Reaction Status Date / Time tomato Allergy Severe Hives Verified 11/04/17 05:45 No Known Drug Allergies Allergy Verified 11/04/17 05:45 Home Medications: Ambulatory Orders Zolpidem Tartrate [Ambien] 10 mg PO HS 06/21/16 Amlodipine Besylate [Norvasc -] 10 mg PO DAILY #30 tab 02/07/17 Docusate Sodium [Colace -] 100 mg PO TID #90 capsule 02/07/17 Ferrous Sulfate 325 mg PO BID #60 tablet 02/07/17 Lisinopril 10 mg PO DAILY #30 tab 02/07/17 Anemia: Yes Asthma: Yes (ON MDI) Cancer: No Cardiac Disorders: Yes CVA: No COPD: No CHF: No Dementia: No Diabetes: No GI Disorders: Yes (gerd) Disorders: No HTN: Yes (ON MEDS.) Hypercholesterolemia: No Kidney Stones: No Liver Disease: No Seizures: No Thyroid Disease: No - Surgical History Abdominal Surgery: No Appendectomy: No Cardiac Surgery: No Cholecystectomy: No Lung Surgery: No Neurologic Surgery: No Orthopedic Surgery: No - Reproductive History PID: No - Immunization History Immunization Up to Date: No - Suicide/Smoking/Psychosocial Hx Smoking History: Never smoked Have you smoked in the past 12 months: No Number of Cigarettes Smoked Daily: 2 Cigars Per Day: 5 Information on smoking cessation initiated: No 'Breaking Loose' booklet given: 10/18/17 Hx Alcohol Use: No Drug/Substance Use Hx: No Substance Use Type: Alcohol, Cocaine Hx Substance Use Treatment: Yes (Multiple previous in rehab @ [facility]) Review of Systems - Review of Systems Comments:: 11/04/17 05:57 Constitutional: No fevers, chills, fatigue, malaise HEENT: No Rhinorrhea, nasal congestion, visual changes Cardiovascular: Palpitations. No chest pain, syncope, lightheadedness Respiratory: No Cough, SOB, Hemoptysis, Gastrointestinal: No Abdominal pain, Nausea, Vomiting, Constipation, Diarrhea, Melena Genitourinary: No Dysuria, Frequency, Urgency, Hesitancy, Hematuria, Flank pain Musculoskeletal: No Myalgia, arthralgia Skin: No rashes, itching, bruising, pallor Neurologic: No Headache, Dizziness, Numbness, Weakness, or Tingling Psychiatric: SI No Hallucinations. No HI *Physical Exam - Vital Signs Last Vital Signs Temp Pulse Resp BP Pulse Ox 97.8 F 74 19 165/92 97 11/04/17 05:37 11/04/17 05:37 11/04/17 05:37 11/04/17 05:37 11/04/17 05:37 - Physical Exam Comments: 11/04/17 05:58 General Appearance: Nourished. No Apparent Distress HEENT: EOMI, DIAMOND. No Pharyngeal Erythema, Tonsillar Exudate, Tonsillar Erythema Neck: No Cervical Lymphadenopathy Respiratory/Chest: Lungs Clear, Normal Breath Sounds. No Crackles, Rales, Rhonchi, Wheezing Cardiovascular: Regular Rhythm, Regular Rate. No Murmur, Gallops, Rubs Gastrointestinal/Abdominal: Normal Bowel Sounds, Soft. No Guarding, Rebound, Tenderness Musculoskeletal: No CVA Tenderness Extremity: Normal Capillary Refill Integumentary: Normal Color, Dry, Warm Neurologic: Fully Oriented, Alert, Normal Mood/Affect, Normal Response, Heart Score/ECG Review #1 ECG reviewed & interpreted by me at: 05:58 (Prolonged QT(qtc 495)) General ECG Interpretation: Sinus Rhythm, Normal Rate, No acute ischemic changes ED Treatment Course - LABORATORY CBC & Chemistry Diagram: 11/05/17 07:21 11/05/17 07:21 Medical Decision Making - Medical Decision Making 11/04/17 06:00 The patient is a 62 year old female with a history of HTN, HLD, GERD, Paranoid Schizophrenia who presents for evaluation of palpitations. Differential includes but is not limited to: Arrhythmia, Intoxication, Drug Use, Infectious, Metabolic derangement. Given the patient's presenting symptoms and exam, it is likely the patient is experiencing symptoms of her schizophrenia. The patient is endorsing concerning statements for SI. We will obtain a cbc, cmp, ekg, alcohol level, salycilate level, acetomenophen level, ua, urine tox to evaluate further for possible etiologies. We will continue to monitor and reassess in the meantime. The patient will require a psychiatry consultation in the morning for further evaluation. 11/04/17 06:51 Patient signed out to the Day team pending lab results and psychiatric evaluation. *DC/Admit/Observation/Transfer Diagnosis at time of Disposition: Suicidal ideation Schizophrenia Qualifiers: Schizophrenia type: unspecified Qualified Code(s): F20.9 - Schizophrenia, unspecified - Discharge Dispostion Condition at time of disposition: Fair - Referrals - Patient Instructions - Post Discharge Activity
--- NOTE | 2017-11-04 06:01 | PDOC ---
Attending Attestation - Resident Resident Name: YaneliAbdi - ED Attending Attestation I have performed the following: I have examined & evaluated the patient, The case was reviewed & discussed with the resident, I agree w/resident's findings & plan, Exceptions are as noted - HPI HPI: 11/04/17 05:54 Ms Arriaza presents to the er with multiple complaints including feeling like the world would be better without her She reports palpitations She denies plan for self harm or harm of others (+) Marijuana and "a small crack rock" No fevers or chills No headache, chest pain Pt requesting breakfast Pt reports that she is , she would like an LMP 07/18/2008 No chest pain No abdominal pain (+) palpitations 11/04/17 06:48 11/04/17 06:49 - Physicial Exam PE: 11/04/17 05:59 GENERAL: The patient is in no acute distress. EYES: PERRLA, EOMI, sclera anicteric, conjunctiva clear. ENT: Ears normal, nares patent, oropharynx clear without exudates. Moist mucous membranes. NECK: Normal range of motion, supple without lymphadenopathy, JVD, or masses. LUNGS: Breath sounds equal, clear to auscultation bilaterally. No wheezes, and no crackles. HEART:Regular rate and rhythm, normal S1 and S2 without murmur, rub or gallop. ABDOMEN: Soft, nontender, normoactive bowel sounds. No guarding, no rebound. No masses palpable. EXTREMITIES: Normal range of motion, no edema. No clubbing or cyanosis. No erythema, or tenderness. NEUROLOGICAL: Cranial nerves II through XII grossly intact. Normal speech. No focal neurological deficits. Ambulatory around the ER with no difficulty SKIN: Warm, Dry, normal turgor, no rashes or lesions noted. - Medical Decision Making 11/04/17 06:49 Labs Urine Tox Psych consult Signed out to on coming attending
[2017-11-04 06:36] LABS: URINE APPEARANCE CLEAR; URINE BILIRUBIN NEGATIVE (<2.0 mg/dL); URINE BLOOD 1+ (NEGATIVE); URINE COLOR STRAW; URINE GLUCOSE (UA) NEGATIVE (NEGATIVE); URINE KETONE TRACE (NEGATIVE); URINE LEUK ESTERASE NEGATIVE (NEGATIVE); URINE NITRITE NEGATIVE (NEGATIVE); URINE PROTEIN NEGATIVE (NEGATIVE); URINE UROBILINOGEN NEGATIVE mg/dL (0.2-1.0)
[2017-11-04 06:44] LABS: BASO % 0.7 % (0-2.0); EOS % 2.9 % (0-4.5); HEMATOCRIT 32.9 % (32.4-45.2); LYMPH % 35.2 % (8-40); MCH 30.3 pg (25.7-33.7); MCHC 33.4 g/dl (32.0-36.0); MEAN CELL VOLUME 90.7 fl (80-96); MEAN PLT VOLUME 9.5 fl (7.5-11.1); MONO % 11.4 % (3.8-10.2); NEUT % 49.8 % (42.8-82.8); PLATELET COUNT 147 K/MM3 (134-434); RBC 3.63 M/mm3 (3.60-5.2); RDW 14.7 % (11.6-15.6); WHITE BLOOD COUNT 3.8 K/mm3 (4.0-10.0)
[2017-11-04 06:45] LABS: METHADONE, UR NEGATIVE ng/ml (CUTOFF=300); OPIATES, URI NEGATIVE ng/ml (CUTOFF=300); PHENCYCLIDINE,URINE NEGATIVE ng/ml (CUTOFF=25); URINE AMPHETAMINES NEGATIVE ng/ml (CUTOFF=500); URINE BARBITURATES NEGATIVE ng/ml (CUTOFF=200); URINE BENZODIAZEPINES NEGATIVE ng/ml (CUTOFF=200)
[2017-11-04 06:46] LABS: COCAINE, UR POSITIVE ng/ml (CUTOFF=300)
[2017-11-04 07:00] LABS: EPI CELLS RARE /HPF (FEW); URINE MUCUS RARE
[2017-11-04 07:04] LABS: ALBUMIN 3.5 g/dl (3.4-5.0); ALK PHOS 60 U/L (45-117); ANION GAP 4 (8-16); BILIRUBIN,TOTAL 0.9 mg/dL (0.2-1.0); BLOOD UREA NITROGEN 20 mg/dL (7-18); CALCIUM 8.5 mg/dL (8.5-10.1); CHLORIDE 108 mmol/L (98-107); CO2 28 mmol/L (21-32); CREATININE 1.1 mg/dL (0.55-1.02); GLUCOSE,RANDOM 82 mg/dL (74-106); POTASSIUM 4.1 mmol/L (3.5-5.1); SGOT/AST 11 U/L (15-37); SGPT/ALT 17 U/L (12-78); SODIUM 140 mmol/L (136-145); TOT PROT 6.5 g/dl (6.4-8.2)
--- NOTE | 2017-11-04 07:04 | PDOC ---
*Physical Exam - Vital Signs Last Vital Signs Temp Pulse Resp BP Pulse Ox 97.8 F 74 19 165/92 97 11/04/17 05:37 11/04/17 05:37 11/04/17 05:37 11/04/17 05:37 11/04/17 05:37 ED Treatment Course - LABORATORY CBC & Chemistry Diagram: 11/04/17 06:09 11/04/17 06:09 - ADDITIONAL ORDERS Additional order review: Laboratory Results 11/04/17 11/04/17 06:09 06:09 Urine Color Straw Urine Appearance Clear Urine pH 5.0 Ur Specific [place] 1.005 Urine Protein Negative Urine Glucose (UA) Negative Urine Ketones Trace H Urine Blood 1+ H Urine Nitrite Negative Urine Bilirubin Negative Urine Urobilinogen Negative Ur Leukocyte Esterase Negative Opiates Screen Negative Methadone Screen Negative Barbiturate Screen Negative Phencyclidine Screen Negative Ur Amphetamines Screen Negative MDMA (Ecstasy) Screen Negative Benzodiazepines Screen Negative Cocaine Screen Positive U Marijuana (THC) Screen Positive Medical Decision Making - Medical Decision Making 11/04/17 07:03 Care taken over from Dr. Groves. *DC/Admit/Observation/Transfer - Discharge Dispostion Condition at time of disposition: Fair - Referrals Referrals: Sarath Carmona [Primary Care Provider] - - Patient Instructions - Post Discharge Activity
[2017-11-04 07:05] LABS: SALICYLATE <4.0 mg/dL
--- NOTE | 2017-11-04 07:07 | PDOC ---
*Physical Exam - Vital Signs Last Vital Signs Temp Pulse Resp BP Pulse Ox 97.8 F 74 19 165/92 97 11/04/17 05:37 11/04/17 05:37 11/04/17 05:37 11/04/17 05:37 11/04/17 05:37 <Juan Carlos Harrison - Last Filed: 11/04/17 12:56> - Vital Signs Last Vital Signs Temp Pulse Resp BP Pulse Ox 97.8 F 74 19 165/92 97 11/04/17 05:37 11/04/17 05:37 11/04/17 05:37 11/04/17 05:37 11/04/17 05:37 <Mehran Castillo - Last Filed: 11/04/17 14:09> ED Treatment Course - LABORATORY CBC & Chemistry Diagram: 11/04/17 06:09 11/04/17 06:09 - ADDITIONAL ORDERS Additional order review: Laboratory Results 11/04/17 11/04/17 11/04/17 06:09 06:09 06:09 Sodium 140 Potassium 4.1 Chloride 108 H Carbon Dioxide 28 Anion Gap 4 L BUN 20 H Creatinine 1.1 H Creat Clearance w eGFR 50.67 Random Glucose 82 Calcium 8.5 Total Bilirubin 0.9 D AST 11 L ALT 17 Alkaline Phosphatase 60 Total Protein 6.5 Albumin 3.5 Urine Color Straw Urine Appearance Clear Urine pH 5.0 Ur Specific [place] 1.005 Urine Protein Negative Urine Glucose (UA) Negative Urine Ketones Trace H Urine Blood 1+ H Urine Nitrite Negative Urine Bilirubin Negative Urine Urobilinogen Negative Ur Leukocyte Esterase Negative Urine WBC (Auto) <1 Urine RBC (Auto) <1 Ur Epithelial Cells Rare Urine Mucus Rare Opiates Screen Negative Methadone Screen Negative Barbiturate Screen Negative Phencyclidine Screen Negative Ur Amphetamines Screen Negative MDMA (Ecstasy) Screen Negative Benzodiazepines Screen Negative Cocaine Screen Positive U Marijuana (THC) Screen Positive 11/04/17 06:09 RBC 3.63 MCV 90.7 MCHC 33.4 RDW 14.7 MPV 9.5 Neutrophils % 49.8 Lymphocytes % 35.2 Monocytes % 11.4 H Eosinophils % 2.9 Basophils % 0.7 <Juan Carlos Harrison - Last Filed: 11/04/17 12:56> - LABORATORY CBC & Chemistry Diagram: 11/04/17 06:09 11/04/17 06:09 - ADDITIONAL ORDERS Additional order review: Laboratory Results 11/04/17 11/04/17 06:09 06:09 Urine Color Straw Urine Appearance Clear Urine pH 5.0 Ur Specific [place] 1.005 Urine Protein Negative Urine Glucose (UA) Negative Urine Ketones Trace H Urine Blood 1+ H Urine Nitrite Negative Urine Bilirubin Negative Urine Urobilinogen Negative Ur Leukocyte Esterase Negative Opiates Screen Negative Methadone Screen Negative Barbiturate Screen Negative Phencyclidine Screen Negative Ur Amphetamines Screen Negative MDMA (Ecstasy) Screen Negative Benzodiazepines Screen Negative Cocaine Screen Positive U Marijuana (THC) Screen Positive <Mehran Castillo - Last Filed: 11/04/17 14:09> Medical Decision Making - Medical Decision Making 11/04/17 12:[address] Nolasco, [facility] for psych admission 2/2 acute delerium/psychosis/ paranoia. On 1:1 Discussed with Case Management, no available psych beds. Admitted to Dr. Acuna, her PCP. <Juan Carlos Harrison - Last Filed: 11/04/17 12:56> - Medical Decision Making 11/04/17 07:07 Care taken over from Dr. Groves. 11/04/17 08:07 Patient is a 62 yo female w/ pmh of HTN, HLD, GERD, schizophrenia (not currently on medication) who presents w/ suicidal ideation; patient admits to smoking marijuana and using crack cocaine. Labs grossly unconcerning as below. Psychiatry paged for further evaluation. 11/04/17 08:[address] Nolasco who will evaluate. 11/04/17 12:31 Dr. Nolasco will commit patient. Paging hospitalist for ED obs admission. 11/04/17 12:41 Inpatient team paged for ED OBS admission 11/04/17 13:28 Patient has to come in for admission to primary team as case management could not find placement. PCP paged for admission. 11/04/17 14:[address] Galarza who will admit for Dr. Carmona. <Mehran Castillo - Last Filed: 11/04/17 14:09> *DC/Admit/Observation/Transfer <Juan Carlos Harrison - Last Filed: 11/04/17 12:56> - Discharge Dispostion Decision to Admit order: Yes <Mehran Castillo - Last Filed: 11/04/17 14:09> Diagnosis at time of Disposition: Suicidal ideation Schizophrenia Qualifiers: Schizophrenia type: unspecified Qualified Code(s): F20.9 - Schizophrenia, unspecified - Discharge Dispostion Condition at time of disposition: Fair - Referrals Referrals: Sarath Carmona [Primary Care Provider] - - Patient Instructions - Post Discharge Activity
[2017-11-04 07:08] LABS: ACETAMINOPHEN < 2.000 ug/mL
--- NOTE | 2017-11-04 10:51 | CON.PSY ---
Psychiatry Consult Chief Complaint: 62 year old AA female callerd the ambulance to come to ER. cLAIMS SHE IS AND wants to kill the man who got her pregant. Long history of Schizophrenia paranoid type. claims she stopped taking her psych meds because she is pregant. stewart angry and agitated and thretening to me and staff. Symptoms: reports: Disorganized/Disruptive Thoughts, Delusions, Paranoia - Previous Psychiatric Treatment Outpatient: More than 6 mos ago Inpatient: One prior admission - Previous Substance Abuse Treatment Outpatient: None Inpatient: None - Reason for Previous Treatment Reason for Previous Treatment: Psychotic Episode, Cocaine - Allergies Allergies: Allergies Allergy/AdvReac Type Severity Reaction Status Date / Time tomato Allergy Severe Hives Verified 11/04/17 05:45 No Known Drug Allergies Allergy Verified 11/04/17 05:45 - Current Living Status Usual Living Arrangement: Alone - Current Mental Status Evaluation Appearance: Disheveled Attitude: Belligerent - Affect Affect: Constrictive Appropriateness: Not Appropriate - Mood Mood: Angry - Speech/Language Expressive: Delayed - Psychomotor Activity Psychomotor Activity: Agitated - Thought Process Thought Process: Circumstantial - Thought Content Hallucinations: Absent Delusions: Present Type: Persectory, Grandiose - Self Perception Self Perception: No Impairment, Depersonalization - Cognition Attention: Alert Orientation: Time Memory, Immediate Recall: Intact Memory, Short Term: 2/3 Memory, Remote with Promptin/3 - Concentration Serial Sevens Intact: No Simple Calculations Intact: No - Abstraction Proverb Interpretation: Impaired Judgement: Severely Impaired - Insight Insight: Impaired - Impulse Control Impulse Control: Severly Impaired - Suicidal Ideation Suicidal Ideation: No - Homicidal Ideation Homicidal Ideation: Yes (wants to kill the man who got her .) Assessment/Plan 1) Needs I(n Patient psych Hospitalization.
--- NOTE | 2017-11-04 13:42 | EKG ---
Test Reason : Blood Pressure : / mmHG Vent. Rate : 073 BPM Atrial Rate : 073 BPM P-R Int : 140 ms QRS Dur : 082 ms QT Int : 450 ms P-R-T Axes : 051 -15 -15 degrees QTc Int : 495 ms NORMAL SINUS RHYTHM POSSIBLE LEFT ATRIAL ENLARGEMENT NONSPECIFIC ST ABNORMALITY PROLONGED QT ABNORMAL ECG WHEN COMPARED WITH ECG OF 25-OCT-2017 15:15, ABERRANT CONDUCTION IS NO LONGER PRESENT Confirmed by MD Geni, Gus ([id number]) on 11/04/2017 1:42:17 PM Referred By: Confirmed By:Gus Arechiga MD
[2017-11-04] MEDS ORDERED: LORazepam 2 MG/ML SDV VIAL ONE ×2 (14:47→22:03)
--- NOTE | 2017-11-04 15:23 | HP ---
Admitting History and Physical - Primary Care Physician PCP: Sarath Carmona - Admission Chief Complaint: not feeling well, tired History of Present Illness: The patient is a 62 year old female with a history of HTN, HLD, GERD, Paranoid Schizophrenia who presents for evaluation of palpitations. The patient was found by EMS outside of her house stating that she was 7 weeks and experiencing a sensation of a racing heart. On exam here in the ED, the patient is stating that she feels her palpitations are "a sign from God that she should just let go and the world would be better off without her." She states that she has been stressed lately with finding housing and being 7 weeks . She currently denies thoughts of harming herself, but notes that she feels like she "just wants everything to end" and "wants to just give up." The patient has been on haldol in the past but is not currently taking any psychiatric medications. She otherwise denies fevers, chills, SOB, chest pain, nausea, vomiting, abdominal pain, or changes with urination or bowel movement above history taken from ER notes when i tried to examine her she says that she has been walking alot and legs are tired and she is not feeling well and is not giving anymore information to me. she is one 1:1 observation in the ER and is seen by psych. History Source: Patient - Past Medical History Cardiovascular: Yes: HTN, Hyperlipdemia Gastrointestinal: Yes: GERD Psych: Yes: Schizophrenia - Smoking History Smoking history: Never smoked Have you smoked in the past 12 months: No Aproximately how many cigarettes per day: 2 - Alcohol/Substance Use Hx Alcohol Use: No Home Medications - Allergies Allergies/Adverse Reactions: Allergies Allergy/AdvReac Type Severity Reaction Status Date / Time tomato Allergy Severe Hives Verified 11/04/17 05:45 No Known Drug Allergies Allergy Verified 11/04/17 05:45 - Home Medications Home Medications: Ambulatory Orders Zolpidem Tartrate [Ambien] 10 mg PO HS 06/21/16 Amlodipine Besylate [Norvasc -] 10 mg PO DAILY #30 tab 02/07/17 Docusate Sodium [Colace -] 100 mg PO TID #90 capsule 02/07/17 Ferrous Sulfate 325 mg PO BID #60 tablet 02/07/17 Lisinopril 10 mg PO DAILY #30 tab 02/07/17 Review of Systems - Review of Systems Constitutional: reports: Other (tired) Physical Examination Vital Signs: Vital Signs Temperature 97.7 F 11/04/17 13:39 Pulse Rate 80 11/04/17 13:39 Respiratory Rate 20 11/04/17 13:39 Blood Pressure 132/58 11/04/17 13:39 O2 Sat by Pulse Oximetry (%) 99 11/04/17 13:39 Constitutional: Yes: Calm Cardiovascular: Yes: Regular Rate and Rhythm, S1, S2 Respiratory: Yes: CTA Bilaterally Gastrointestinal: Yes: Normal Bowel Sounds, Soft Edema: No Neurological: Yes: Alert Labs: CBC, BMP 11/04/17 06:09 11/04/17 06:09 Problem List - Problems (1) Suicidal ideation Assessment/Plan: 1:1 observation psych saw patient Code(s): R45.851 - SUICIDAL IDEATIONS (2) HTN (hypertension) Assessment/Plan: [facility] Code(s): I10 - ESSENTIAL (PRIMARY) HYPERTENSION (3) Schizophrenia Assessment/Plan: seen by psych case management is on board Code(s): F20.9 - SCHIZOPHRENIA, UNSPECIFIED Qualifiers: Schizophrenia type: unspecified Qualified Code(s): F20.9 - Schizophrenia, unspecified
--- NOTE | 2017-11-04 16:26 | CONSULT ---
Consult Detox [facility] Reason for Current Admission/Consult: substance use Referred by:: varun thompson - Alcohol/Substance Use Hx Alcohol Use: No - Past Medical History Cardio/Vascular: Yes: HTN, Hyperlipdemia Gastrointestinal: Yes: GERD Psych: Yes: Schizophrenia Assessment Plan - Diagnosis (1) Cocaine abuse Status: Acute (2) Marijuana abuse Status: Acute (3) HTN (hypertension) Status: Acute (4) Suicidal ideation Status: Acute (5) Schizophrenia Status: Chronic Qualifiers: Schizophrenia type: unspecified Qualified Code(s): F20.9 - Schizophrenia, unspecified - Plan Plan: chart, imaging and labs reviewed. 62 yo f with suidical ideation and thought disorder, thinks she is with utox +ve cocaien adn marijuana admitted. needs psych hospitalization. Cponsider rehab after stabilization and no longer suicidal. - Medication Detox Regimen/Protocol: Not Applicable
[2017-11-04] MEDS: THIAMINE HCL 100 MG TABLET (FP) PO SCH (22:00)
[2017-11-05 08:32] LABS: BASO % 0.8 % (0-2.0); EOS % 1.7 % (0-4.5); HEMATOCRIT 36.4 % (32.4-45.2); HEMOGLOBIN 11.9 GM/dL (10.7-15.3); LYMPH % 42.1 % (8-40); MCH 29.6 pg (25.7-33.7); MCHC 32.8 g/dl (32.0-36.0); MEAN CELL VOLUME 90.2 fl (80-96); MEAN PLT VOLUME 9.7 fl (7.5-11.1); MONO % 11.9 % (3.8-10.2); NEUT % 43.5 % (42.8-82.8); PLATELET COUNT 164 K/MM3 (134-434); RBC 4.04 M/mm3 (3.60-5.2); RDW 14.4 % (11.6-15.6)
[2017-11-05 09:24] LABS: CHLORIDE 109 mmol/L (98-107); POTASSIUM 4.6 mmol/L (3.5-5.1); SODIUM 141 mmol/L (136-145)
[2017-11-05 10:12] LABS: ALBUMIN 3.3 g/dl (3.4-5.0); ALK PHOS 59 U/L (45-117); ANION GAP 5 (8-16); BILIRUBIN,TOTAL 0.6 mg/dL (0.2-1.0); BLOOD UREA NITROGEN 16 mg/dL (7-18); CALCIUM 8.1 mg/dL (8.5-10.1); CO2 27 mmol/L (21-32); GLUCOSE,RANDOM 87 mg/dL (74-106); MAGNESIUM 2.2 mg/dL (1.8-2.4); PHOSPHOROUS 3.7 mg/dL (2.5-4.9); SGOT/AST 13 U/L (15-37); SGPT/ALT 14 U/L (12-78); TOT PROT 6.5 g/dl (6.4-8.2)
[2017-11-05] MEDS: amLODIPine BESYLATE 5 MG TABLET (FP) PO SCH (10:58)
[2017-11-05] MEDS: PRENATAL VITAMINS W/ FOLIC ACID TABLET (FP) PO SCH (10:59)
--- NOTE | 2017-11-05 11:33 | PN ---
Progress Note, Physician Chief Complaint: Schizophrenia History of Present Illness: calm at this time refusing all meds and care has been 2 PC'd, awaiting placement Toxicology positive for cocaine and marijuana Seen by Psych and detox - Current Medication List Current Medications: Active Medications Amlodipine Besylate (Norvasc -) 5 mg PO DAILY [facility] Last Admin: 11/05/17 10:58 Dose: Not Given Multivit/Folic Acid/Iron ( Vitamins (Sjr) -) 1 tab PO DAILY [facility] Last Admin: 11/05/17 10:59 Dose: Not Given Thiamine HCl (Vitamin B1 -) 100 mg PO HS [facility] Last Admin: 11/04/17 22:00 Dose: Not Given - Objective Vital Signs: Vital Signs Temperature 97.7 F 11/04/17 13:39 Pulse Rate 99 H 11/05/17 10:57 Respiratory Rate 18 11/05/17 10:57 Blood Pressure 127/98 11/05/17 10:57 O2 Sat by Pulse Oximetry (%) 98 11/05/17 10:57 Constitutional: Yes: Well Nourished, No Distress Neurological: Yes: Alert, Pre-Existing Deficit Labs: CBC, BMP 11/05/17 07:21 11/05/17 07:21 Problem List - Problems (1) HTN (hypertension) Assessment/Plan: -refused her amlodipine -monitor vitals -low sodium diet Code(s): I10 - ESSENTIAL (PRIMARY) HYPERTENSION (2) Suicidal ideation Assessment/Plan: -awaiting placement at Psych facility Code(s): R45.851 - SUICIDAL IDEATIONS (3) Schizophrenia Assessment/Plan: -seen by Psych and S Code(s): F20.9 - SCHIZOPHRENIA, UNSPECIFIED Qualifiers: Schizophrenia type: unspecified Qualified Code(s): F20.9 - Schizophrenia, unspecified (4) Polysubstance abuse Code(s): F19.10 - OTHER PSYCHOACTIVE SUBSTANCE ABUSE, UNCOMPLICATED Assessment/Plan see problem list
[2017-11-05] MEDS ORDERED: BISACODYL 5 MG TABLET.DR (FP) PO ONE (13:13)
[2017-11-05] MEDS ORDERED: ACETAMINOPHEN 325 MG TABLET (FP) PO PRN (13:13)
[2017-11-05] MEDS ORDERED: BISACODYL 5 MG TABLET.DR (FP) ONE (13:24)
[2017-11-05] MEDS ORDERED: ACETAMINOPHEN 325 MG TABLET (FP) ONE (13:24)
[2017-11-05] MEDS: THIAMINE HCL 100 MG TABLET (FP) PO SCH (22:26)
[2017-11-06] MEDS: amLODIPine BESYLATE 5 MG TABLET (FP) PO SCH (10:37)
[2017-11-06] MEDS: PRENATAL VITAMINS W/ FOLIC ACID TABLET (FP) PO SCH ×2 (10:37→13:50)
--- NOTE | 2017-11-06 12:53 | PN ---
Progress Note, Physician Chief Complaint: patient is 1:1 she adamant on leaving hospital to go home currently awaiting for bed in psych facility - Current Medication List Current Medications: Active Medications Acetaminophen (Tylenol -) 650 mg PO Q6H PRN PRN Reason: PAIN OR FEVER Amlodipine Besylate (Norvasc -) 5 mg PO DAILY [facility] Last Admin: 11/06/17 10:37 Dose: Not Given Multivit/Folic Acid/Iron ( Vitamins (Sjr) -) 1 tab PO DAILY [facility] Last Admin: 11/06/17 10:37 Dose: Not Given Thiamine HCl (Vitamin B1 -) 100 mg PO HS [facility] Last Admin: 11/05/17 22:26 Dose: Not Given - Objective Vital Signs: Vital Signs Temperature 98.1 F 11/06/17 06:00 Pulse Rate 120 H 11/06/17 01:33 Respiratory Rate 20 11/06/17 06:00 Blood Pressure 152/93 11/06/17 06:00 O2 Sat by Pulse Oximetry (%) 98 11/06/17 04:54 Constitutional: Yes: Calm Neck: Yes: Trachea Midline Cardiovascular: Yes: Regular Rate and Rhythm, S1, S2 Respiratory: Yes: CTA Bilaterally Gastrointestinal: Yes: Normal Bowel Sounds, Soft Edema: No Neurological: Yes: Alert, Oriented Labs: CBC, BMP 11/05/17 07:21 11/05/17 07:21 Problem List - Problems (1) Suicidal ideation Assessment/Plan: 1:1 observation psych FU regarding if she is still requires 1:1 and if she has competency to make her decisions patient is wants to go home awaiting for psych bed Code(s): R45.851 - SUICIDAL IDEATIONS (2) HTN (hypertension) Assessment/Plan: norvasc Code(s): I10 - ESSENTIAL (PRIMARY) HYPERTENSION (3) Schizophrenia Assessment/Plan: seen by psych case management is on board Code(s): F20.9 - SCHIZOPHRENIA, UNSPECIFIED Qualifiers: Schizophrenia type: unspecified Qualified Code(s): F20.9 - Schizophrenia, unspecified
--- NOTE | 2017-11-06 14:51 | PN ---
Progress Note (short form) - Note Progress Note: Patients Mental Status has improved significantly since the admission. MS: alert, oriented, good eye contact. not [id number] or psychotic. not vsuicidal or homocidal. Cognition is intact. Patient is able to comprehend. Plan: D/C 1:1 2) will return to [facility] and follow up with Psych there.
[2017-11-06] MEDS: LISINOPRIL 20 MG TABLET (FP) PO SCH (15:54)
[2017-11-06] MEDS: FERROUS SO4 325 MG TABLET (FP) PO SCH (15:54)
[2017-11-06] MEDS: FOLIC ACID 1 MG TABLET (FP) PO SCH (15:54)
[2017-11-06] MEDS: RANITIDINE HCL 150 MG TABLET (FP) PO SCH (15:54)
[2017-11-06] MEDS ORDERED: dilTIAZem HCL 50 MG/10 ML - 10 ML VIAL IVPUSH PRN (17:22)
[2017-11-06] MEDS ORDERED: RIVAROXABAN 20 MG TABLET PO SCH (18:00)
[2017-11-06] MEDS ORDERED: dilTIAZem HCL 25 MG/5 ML - 5 ML VIAL IVPUSH PRN (18:55)
[2017-11-06] MEDS: THIAMINE HCL 100 MG TABLET (FP) PO SCH ×2 (20:26→21:39)
[2017-11-07 05:48] VITALS: BP 162/67; PULSE 102; TEMP 98
[2017-11-07] MEDS: FOLIC ACID 1 MG TABLET (FP) PO SCH (09:24)
[2017-11-07] MEDS: amLODIPine BESYLATE 5 MG TABLET (FP) PO SCH (09:24)
[2017-11-07] MEDS: FERROUS SO4 325 MG TABLET (FP) PO SCH (09:24)
[2017-11-07] MEDS: PRENATAL VITAMINS W/ FOLIC ACID TABLET (FP) PO SCH (09:24)
[2017-11-07] MEDS: RANITIDINE HCL 150 MG TABLET (FP) PO SCH (09:24)
[2017-11-07] MEDS: LISINOPRIL 20 MG TABLET (FP) PO SCH (09:24)
--- NOTE | 2017-11-07 10:17 | EKG ---
Test Reason : Blood Pressure : / mmHG Vent. Rate : 129 BPM Atrial Rate : 147 BPM P-R Int : 000 ms QRS Dur : 084 ms QT Int : 322 ms P-R-T Axes : 000 002 000 degrees QTc Int : 471 ms ATRIAL FIBRILLATION WITH RAPID VENTRICULAR RESPONSE NONSPECIFIC ST ABNORMALITY WHEN COMPARED WITH ECG OF 04-NOV-2017 05:43, ATRIAL FIBRILLATION HAS REPLACED SINUS RHYTHM VENT. RATE HAS INCREASED BY 56 BPM Confirmed by MICHELLE ROJAS MD ([id number]) on 11/07/2017 10:16:59 AM Referred By: NAVA COLON Confirmed By:MICHELLE ROJAS MD
== END 2017-11-07 10:56 | disposition home or self-care (01) | DRG 750 ==
LOC: JER 05:31 → JERBED 14:28 → UNDOADMOB 14:28 → INTOOBSV 14:28 → JERBED 15:33 → OBSVTOIN 15:33 → J8W 11-06 00:55 → J4W 11-06 18:31
PROVIDERS: ADMIT Family Medicine; ATTEND Family Medicine
DX: F20.0 Paranoid schizophrenia (principal); K21.9 Gastro-esophageal reflux disease without esophagitis; I10 Essential (primary) hypertension; E78.5 Hyperlipidemia, unspecified; R45.851 Suicidal ideations; F19.10 Other psychoactive substance abuse, uncomplicated; F12.129 Cannabis abuse with intoxication, unspecified; I45.81 Long QT syndrome; F14.129 Cocaine abuse with intoxication, unspecified
CPT/HCPCS: 36415; 80053; 80307; 81003; 81015; 83735; 84100; 84703; 85025; 93005; 93010; 99284-25